=== PATIENT | female | born 1950 | race Caucasian/White ===

== ENCOUNTER → 2020-03-07 13:26 | Outpatient (CLI) | payer MEDICARE, SELFPAY ==
[2020-03-09 08:22] LABS: COVID19 Sendout Not Detected (Not Detect)
== END ==
PROVIDERS: Visit Provider Physician Assistant
DX: Z11.59 Encounter for screening for other viral diseases (principal)
CPT/HCPCS: 87635

== ENCOUNTER 2020-03-10 11:16 | Day surgery (SDC) | payer MEDICARE, SELFPAY ==
[2020-03-03 10:48] VITALS: BMI 28.2
[2020-03-10] VITALS (12 sets, daily range): BP systolic 110–147; BP diastolic 49–91; PULSE 72–91; RESP 15–16; TEMP 35.9–37.3; O2SAT 94–100; BMI 27.6
--- NOTE | 2020-03-10 | DI.RAD.S_ITS ---
PROCEDURE: XR HIP W PEL IF DONE RT 2V INDICATIONS: TOTAL HIP TECHNIQUE: AP pelvis with lateral view(s) of the right hip(s). COMPARISON: None. FINDINGS: Spot fluoroscopic intraoperative views demonstrating expected alignment of right hip arthroplasty. Hardware appears intact. Dictated by: Elia Bardales M.D. on 03/11/2020 at 8:38 Approved by: Elia Bardales M.D. on 03/11/2020 at 8:39
--- NOTE | 2020-03-10 06:00 | DI.RAD.S_ITS ---
PROCEDURE: XR HIP W PEL IF DONE RT 2V INDICATIONS: post-op TECHNIQUE: AP pelvis with lateral view(s) of the right hip(s). COMPARISON: [facility], , XR HIP W PEL IF DONE RT 2V, 03/10/2020, 16:57. FINDINGS: Expected postoperative alignment of right hip arthroplasty. Hardware appears intact. Dictated by: Elia Bardales M.D. on 03/11/2020 at 9:36 Approved by: Elia Bardales M.D. on 03/11/2020 at 9:49
[2020-03-10] MEDS: ACETAMINOPHEN 325 MG TABLET 975 MG PO (11:34)
[2020-03-10] MEDS: CELECOXIB 200 MG CAPSULE PO (11:34)
[2020-03-10] MEDS: PREGABALIN 75 MG CAPSULE PO (11:34)
[2020-03-10] MEDS: LACTATED RINGERS 1,000 ML 42 ML IV ×2 (12:22→15:02)
[2020-03-10] MEDS: VANCOMYCIN 1,000 MG/200 ML PIGGYBACK 200 MG IV (12:41)
--- NOTE | 2020-03-10 13:08 | P.OP_ITS ---
Operative Date/Time/Diagnoses Date of procedure: 03/10/20 Time of procedure: 13:51 Pre-op diagnosis: right hip /avn Post-op diagnosis: same Procedure & Clinicians Procedure: Right total hip arthroplasty anterior approach Same procedure as scheduled: Yes Indications: The patient has had progressively worsening right hip pain with radiographic changes consistent with arthritis. Non-operative management has failed and the patient has requested total hip replacement. The risks, benefits and alternatives to surgery were discussed with the patient prior to proceeding. Risks discussed included, but were not limited to, failure to relieve pain, leg length discrepancy, dislocation, stiffness, infection, nerve damage, deep venous thrombosis, pulmonary embolism, stroke, coma, heart attack, permanent paralysis and , as well as the potential need for eventual revision of the prosthetic. Surgeon: Malika Felipe Clarity Developer: Kathia Gómez Anesthesia Type: General and Spinal Operative Notes Findings: Severe right hip avascular necrosis, adequate stability, soft but adequate bone Closure Type: primary Specimen(s): none sent Prosthetic devices, grafts, tissues, transplants, or devices: Felipe and Nephew 52 mm R3 cup, size 4 standard offset anthology, +0 Oxinium by 36 head, one 20 mm screw Estimated Blood Loss (mL): 250 Blood products transfused: none Procedure in detail: The patient was brought to the operating room. Patient was carefully positioned in the supine position. Time-out was performed and antibiotics were given. Anesthesia was induced. She was positioned in the on the table in order to allow hyperextension of the hip. The right lower extremity was prepped and draped in a standard sterile fashion. An anterior right hip incision was made 1 fingerbreadth lateral to the anterior superior iliac spine and extended distally towards the greater trochanter. Dissection was carried out through skin and subcutaneous tissues. Superficial hemostasis was achieved. The fascia over the tensor fascia germán was defined and incised with a knife. Two Allis clamps were used to grasp the fascia. Tensor fascia germán was retracted laterally. A gelpi retractor was placed. Dissection was carried out down along the neck. The circumflex vessels were carefully identified and cauterized with the Aqua Mantis. There was adequate visualization of the femoral neck. There was significant adhesions in her hip both between the tensor and the underlying fascia as well as the hip abductors and severe scarring between the hip abductors and the capsule. The soft tissues were meticulously mobilized off of the capsule. There were fairly dense adhesions between the capsule and the hip abductors as well as the rectus. A Cobra was placed superior to the neck and the gluteus fibers were carefully stripped from that superior aspect of the capsule. A 2nd retractor was placed along the inferior aspect of the neck. The rectus insertion along the capsule was partially released. The rectus was fairly densely adhered to the anterior capsule and was meticulously released. A 3rd retractor that was then gently placed over the rim of the acetabulum under the rectus. Capsule was carefully incised and released from the intertrochanteric line circumferentially superior to the mid sagittal line and inferiorly to the mid sagittal line until the lesser trochanter was palpable. A tag stitch was placed both in the superior and inferior limb of the capsular insertion. Along the acetabulum capsule was also released up to the mid sagittal 12:00 position. A portion of the labrum was resected. The capsule had to be carefully released from the superior aspect of the acetabulum and it was also densely adherent to the posterior labrum. A saw was used to perform an osteotomy at the level of the i ntertrochanteric line and the junction of the superior femoral neck leaving approximately 1 finger breath of residual inferior neck above the lesser trochanter. A 2nd cut was made along the femoral neck at the base of the head and a napkin ring of neck was removed. Corkscrew was placed in the femoral head and the head was removed without difficulty. Retractors were then repositioned around the a cetabulum. Residual labrum was resected and additional osteophytes were removed. A reamer that was 4 mm below the templated size was placed by hand in the acetabulum and it was reamed to centralize the acetabulum. It was then reamed up to 2 under the templated size and fluoroscopy was brought in to confirm the position of the reaming and depth of reaming. I reamed 1 under the anticipated size. A trial cup was placed and noted that it was appropriately sized and fluoroscopy confirmed position and depth. The component was open and inserted without difficulty fluoroscopic imaging was used to confirm that the cup had been adequately seated and was well positioned. It was further stabilized with a single posterior screw. Neutral poly trial liner was placed. The cup was tested and noted to be stable. Attention was then directed to the femur. The femur was gently hyperextended additional capsular release was performed as needed in order to allow adequate visualization of the proximal femur with elevation of the femur. Patient was placed in a hyperextended slightly adducted position with maximum external rotation. Box osteotome was used to check for any residual neck as well as scler otic bone along the trochanter. [place] pepper was placed in the femur. Additional broaching was performed. Canal finder was used to determine the alignment of the canal and position. Size 1 broach was placed. The canal was then appropriately broached up to the templated size as long as there was adequate stability of the broach and serial advancement of the broach without excessive impingement. Sp ecific attention was directed at avoiding varus attempting to direct the distal aspect of the broach more anteriorly and avoiding excessive anteversion. Trial reduction showed acceptable range of motion, good stability, no posterior impingement, episcopalian of leg length and appropriate lateral shuck. I also hyperflexed the hip and checked that there was no impingement anteriorly and there was good stability with flexion, adduction and internal rotation. Marcaine and Exparel were injected. The stem was placed without difficulty. Repeat trial reduction and x-ray showed acceptable overall position, length, and no evidence of the femoral fracture. Final head was placed. Wound was meticulously irrigated with normal saline. The hip was reduced and additional Exparel and Marcaine were injected. The capsule was closed with interrupted nonabsorbable sutures. The fascia of the tensor was closed with interrupted and running Vicryl. No drain was placed. Any tensor fascia germán muscle that appeared to be contused or injured which was a minimal amount was carefully resected. Capsule around the tensor was injected with Exparel and Marcaine. The skin was closed with barbed stitches for the s ubcutaneous tissue and skin. We also used surgical glue. The wound was dressed sterilely. Brief Betadine soak was also used and was meticulously irrigated with normal saline. Patient was transferred to recovery room in satisfactory condition. Complications: none Post-operative Condition: stable Disposition: Acute Care Plan for aftercare: The patient will be maintained on a standard total hip replacement protocol with weight bearing as tolerated and anterior hip precautions. The patient will receive Aspirin and sequential compression devices for DVT prophylaxis. The patient will be discharged home when safe for the home environment.
--- NOTE | 2020-03-10 13:08 | PM.PREOP ---
Pre-operative Note COVID-19 COVID-19 status: Negative Interval Note History & Physical reviewed/Exam performed by Physician: Yes Changes to H&P: No
[2020-03-10] MEDS: CEFAZOLIN 2 GM/100 ML FROZ.PIGGY IV ×2 (13:45→21:36)
[2020-03-10] MEDS: TRANEXAMIC ACID 1,000 MG VIAL 2000 MG INJ (14:16)
--- NOTE | 2020-03-10 14:30 | SUR.OPER ---
Supine on padded [place] table with bilateral legs secured in padded positioning boots and suspended in positioning spars, operative leg in traction per surgeon. Head on one pillow. Arm on non-operative side secured on padded armboard <90 degrees abduction. Arm on operative side padded and resting across chest then secured with tape over sheet. Padded perineal post in place per surgeon.
[2020-03-10] MEDS: BUPIVACAINE 0.25% W/ EPI (PF) 10 ML VIAL 20 ML INJ (14:35)
[2020-03-10] MEDS: SODIUM CHLORIDE IRRIG SOLUTION 250 ML, POVIDONE-IODINE SPONGE STICKS 1 APPLIC IRR (14:38)
[2020-03-10] MEDS: BUPIVACAINE LIPOSOME 266 MG/20 ML VIAL INJ (14:38)
[2020-03-10] MEDS: LACTATED RINGERS 1,000 ML 125 ML IV (20:12)
[2020-03-10] MEDS: ASPIRIN EC 81 MG TABLET PO (21:36)
[2020-03-10] MEDS: DOCUSATE 100 MG CAPSULE PO (21:36)
[2020-03-10] MEDS: IBUPROFEN 400 MG TABLET PO (21:36)
[2020-03-10] MEDS: ACETAMINOPHEN 325 MG TABLET 650 MG PO (21:36)
[2020-03-11] MEDS: IBUPROFEN 400 MG TABLET PO ×4 (00:40→12:16)
[2020-03-11] MEDS: LACTATED RINGERS 1,000 ML 125 ML IV (04:43)
[2020-03-11 04:45] VITALS: BP 122/77; PULSE 69; RESP 16; TEMP 36.6; O2SAT 98
[2020-03-11 05:53] LABS: Hematocrit 28.2 % (36-46); Hemoglobin 9.4 g/dL (12.0-16.0)
[2020-03-11] MEDS: CEFAZOLIN 2 GM/100 ML FROZ.PIGGY IV (05:58)
--- NOTE | 2020-03-11 08:20 | PM.PNPO.1 ---
Subjective Subjective Date Patient Seen: 03/11/20 Time Patient Seen: 08:20 Interval history: POD #1 s/p right total hip arthroplasty anterior approach with Dr. Felipe. Patient is having no pain today. She has gotten up to the bedside commode. She has not worked with physical therapy yet. No complaints this morning. Exam Vital Signs (past 8 hours): - 03/11/20 04:45 Temperature 97.9 F Pulse Rate 69 Respiratory Rate 16 Blood Pressure 122/77 Pulse Oximetry 98 Oxygen Delivery Method Room Air Oxygen Flow Rate 0 Narrative Exam Narrative: Patient lying in bed no acute distress. She is alert orient x3. Calves are soft, compressible, nontender bilaterally. SCDs on and functioning. Dorsalis pedis pulses 2+. She is able to actively dorsiflex and plantar flex. Sensation intact light touch throughout bilateral lower extremities. Objective Labs Result Diagrams: 03/11/20 05:38 Labs: Laboratory Results - last 24 hr 03/11/20 05:38 Hgb 9.4 L Hct 28.2 L Assessment & Plan Post-op Postoperative Procedures: Procedures Operation Date: 03/10/20 13:15 Actual Procedures Side Surgeon p Total Hip Arthroplasty/Anterior Approach Right Malika Felipe MD patient will mobilize with physical therapy today. Anterior hip precautions. We will plan to send home a prescription for Brusly for pain control. She is to take ASA 81 mg b.i.d. for 6 weeks. If patient is mobilizing safely with adequate pain control she could go home today with her .
[2020-03-11 08:52] VITALS: BP 119/73; RESP 16; TEMP 37.2; O2SAT 96
[2020-03-11] MEDS: ACETAMINOPHEN 325 MG TABLET 650 MG PO (09:11)
[2020-03-11 09:12] VITALS: BP 129/80; PULSE 79
[2020-03-11] MEDS: DOCUSATE 100 MG CAPSULE PO (09:12)
[2020-03-11] MEDS: ASPIRIN EC 81 MG TABLET PO (09:12)
[2020-03-11] MEDS: lisinopriL 20 MG TABLET PO (09:12)
--- NOTE | 2020-03-11 11:50 | PT.IIE ---
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) Surgery Performed Operation Date: 03/10/20 13:15 Actual Procedures p Total Hip Arthroplasty/Anterior Approach(Right) - Malika Felipe MD Surgical History (Last Updated 03/03/20 @ 11:05 by Stacy León, RN) History of hysterectomy (Acute 1979) Medical History (Last Updated 03/03/20 @ 11:09 by Stacy León RN) Acid reflux (Acute) Anxiety (Acute) Cervical cancer (Acute 1979) Diverticulosis (Acute) Gout (Acute) HLD (hyperlipidemia) (Acute) HTN (hypertension) (Acute) Osteoarthritis (Acute) Ovarian cancer (Acute 1979) Pre-diabetes (Acute) Physical Therapy Inpatient Evaluation/Re-Eval M1 PT/OT-IP Prior Functional Status Start: 03/11/20 08:33 Freq: NEEDED Status: Active Protocol: Document 03/11/20 09:07 (Rec: 03/11/20 11:50 [email or web address]) Medical Review Prior Functional Status Medical History Reviewed Yes Diet/Fluid Consistency Regular Communication no deficits noted Mobility and Gait SPC for all home and community mobility. Can walk 50 yards at most without a break d/t pain. Pt prefers to use shopping cart for support during grocery shopping Activities of Daily Living and IADL's independent for all ADLs , IADLS with SPC Social History Household Members spouse Living Arrangements House Number of Floors (Floors) Two Floors Number of Stairs To Enter/Railing? 2 KEENAN with L rail, pt can stay on mainfloor Home Environment Tub/Shower Home Equipment Four Wheel Walker,Bedside Commode,Raised Toilet Seat w/ Armrests,Shower Seat with Backrest,Hand Held Shower,Long Handled Sponge,Long Handled Shoe Horn,Seismic Engineer,Grab Bars In Shower Employment Status Retired Additional Social History Comment pt lives with Tom and Tom is retired and able to assist as needed at home. Pt alos scheduled for outpatient PT starting from next week. M2 PT-IP Current Condition Start: 03/11/20 08:33 Freq: NEEDED Status: Active Protocol: Document 03/11/20 09:07 (Rec: 03/11/20 11:50 [email or web address]) Physical Therapy Current Condition Current Condition Evaluation Date 03/11/20 Treatment Diagnosis R JEANETTE (ant), difficulty in walking Onset Date 03/10/20 Precautions Anterior Hip Precautions No Hip Extension,No Hip External Rotation Weight Bearing Status Weight Bearing Status Weight Bear as Tolerated M3 PT-IP Subjective Start: 03/11/20 08:33 Freq: NEEDED Status: Active Protocol: Document 03/11/20 09:07 (Rec: 03/11/20 11:50 [email or web address]) Subjective Physical Therapy Visit Type Type Initial Evaluation Visit Start Time 09:07 Visit Stop Time 09:35 Total Visit Minutes 28 Notes at bedside. Number of PSYCHIATRIC TECHNICIAN Visits 0 Physical Therapy Visit Comments Patient Comments I am doing pretty well at this point Patient Goals To return home with Therapy Pain Assessment Pain When Pain Assessed During Mobility Pain Present Pain Present Pain Reported Location Right Hip Intensity 3 Scale Used Numeric (0 - 10) Description Aching Pain Management Techniques Timing of Activity with Medications M4 PT-IP Mobility and Gait Start: 03/11/20 08:33 Freq: NEEDED Status: Active Protocol: Document 03/11/20 09:07 (Rec: 03/11/20 11:50 [email or web address]) PT-Bed Mobility Assessment Supine to Sit Supine to Sit Standby Assistance Sit to Supine Sit to Supine Standby Assistance PT-Transfer Assessment Sit to and From Stand Sit to and from Stand Contact Guard Assistance,Use of Upper Extremities Equipment Transfer Assistive Device Gait Belt,Front Wheeled Walker Orthotic/Prosthetic Devices or Brace: No Transfers Transfer Destination Bed,Chair,Toilet Transfer Technique Stand Step Pivot Transfer Ability Level of Assist Contact Guard Assistance,Use of Upper Extremities Comments Mobility Comments Pt was in bed upon PT arrival, at bedside. Pt was able to recall all post op precautions. She then agreed to mobilize with PT. She completed supine to sit by slowly pivoting her R LE to EOB. She then sat at R EOB and stood up after with staggered stance and FWW CGA. Educated pt regarding post op WBAT status. Pt then practiced weight shift in standing and proceeded to amb. Pt requested to use toilet and she amb there with CGA with step to pattern. She was able to turn and descend with use of UE to control. Pt completed pericare after and stood up and went for a walk. She completed one lap of [facility] with FWW with step over gait CGA. She also completed stair climbing with L rail. 1st set with PT CORKY and 2nd set with Tom FRIED. She finished it with proper technique safely. She then returned to her room by using her 4WW. Pt amb well with it and steady and no LOB noted. She then sat on chair without stagger stance safely. Pt denies increase in discomfort. Call ligth placed within reach. Gait Assessment Gait Gait Assistance Required: Contact Guard Assist Distance (Feet) 220 Able to Maintain Weight Bearing Status Yes During Gait Assistive Devices Assistive Device Gait Belt,Front Wheeled Walker ,4 Wheeled Walker Orthotic/Prosthetic Devices or Brace: No Gait Deviations General Gait Pattern Antalgic,Decreased Stride Length,Decreased Feet Clearance,Flexed Trunk,Step-to Gait Factors Limiting Gait Function Factors Limiting Gait Function Decreased Activity Tolerance, Decreased Strength,Limited Range of Motion,Pain,Poor Balance Comments Gait Comments see mobility comments. Stair Climbing Assessment Evaluation Level of Assist On Stairs Minimal Assistance Devices Stair Climbing Assistive Devices Left Railing Technique/Endurance Stair Climbing Direction Ascend and Descend Stair Climbing Technique Step to Step Number of Steps Climbed 3 Query Text: Stair Climbing Set # Repetitions (reps) 2 Comments Stair Climbing Comments see mobility comments. PT-Balance Assessment Sitting Balance and Reactions Static Sitting Balance Ability Normal Dynamic Sitting Balance Ability Normal Standing Balance and Reactions Static Standing Balance Ability Normal Dynamic Standing Balance Ability Good Device Used FWW/4WW M5 PT-IP Objective Assessments Start: 03/11/20 08:33 Freq: NEEDED Status: Active Protocol: Document 03/11/20 09:07 (Rec: 03/11/20 11:50 [email or web address]) Orientation Orientation/Cognition Level of Alertness Alert Orientation Name,Age,Birthday,Month,Date, Year,Day of Week,Place, Situation Language Function Ability No Deficits Noted Safety Awareness Understands Safety Issues Memory Description No Deficits Noted Gross Range of Motion Upper Extremity ROM Assessment Within Functional Limits Lower Extremity ROM Assessment Right Impaired Strength Upper Extremity Strength Assessment Within Functional Limits Lower Extremity Strength Assessment Right Impaired Hip 4-/5 Knee 4+/5 Sensation Assessment Sensation Gross Sensation WNL M6 PT-IP Treatment Start: 03/11/20 08:33 Freq: NEEDED Status: Active Protocol: Document 03/11/20 09:07 (Rec: 03/11/20 11:50 [email or web address]) Physical Therapy Treatment Education Education Provided Precautions,Weight Bearing Status,Post-Op Packet,Safety M7 PT-IP Assessment and Plan Start: 03/11/20 08:33 Freq: NEEDED Status: Active Protocol: Document 03/11/20 09:07 (Rec: 03/11/20 11:50 [email or web address]) PT Summary Assessment and Plan Potential Rehabilitation Potential Excellent Status of Condition at Evaluation Stable Summary Impairments Pain,ROM,Strength,Balance,Bed Mobility,Transfers,Gait, Activity Tolerance Progress Towards Goals Safe For Discharge Assessment Summary This is a low complexity for this 69yo female s/o POD1 RTHA with anterior approach. Pt's basline = Use SPC for all mobility but independent for all ADLs and IADLs. CLOF = FWW /4WW for mobility with CGA. Pt completed 220 ft of walking and stair climbing with PAN CLEANER. Althougt pt only has 4WW, but she did demonstrate good ability to amb here in the hospital. She is safe to go home with assistance and outpatient PT to improve mobility and strength. Frequency of Treatment Frequency Of Treatment Discharge Recommendations To Nursing Amount of Assist Needed 1 Person Assist Discharge Recommendations PT Discharge Recommendations Home with Assistance, Outpatient PT Transportation Needs at Discharge Private Vehicle
[2020-03-11] MEDS: HYDROCODONE/ACET 5/325 TABLET 1 TAB PO (12:16)
--- NOTE | 2020-03-11 12:23 | PC.NURSE ---
Day shift note: Patient awake, alert, and pleasantly cooperative. Cleared by PT for discharge. CMS to RLE intact. Dressing to anterior hip, CDI. VSS and afebrile. Voiding and tolerating PO intake. Ambulated with PT in hallway and in room. Discharge instructions given to patient, discussed importance of F/U with Ortho as scheduled, s/sx of infections, mobility precautions, and new medication and side effects. at bedside providing supportive care, both verbalized understanding of discharge instructions. Home via private vehicle, accompanied by . Dr. Felipe updated.
--- NOTE | 2020-03-11 14:38 | CM.IDA ---
Initial DCP Assessment Note Pt is a 69 yo female, resident of [place] now POD#1 from Rt hip surgery w/ Dr Felipe PCP: Marybeth Garrett Payer: GISELA/ELIZABETH Reviewed chart, pt discussed in multidisciplinary rounds this morning. Therapy has cleared pt for return home w/family to assist and pt has planned for home, DC order from Ortho has already been initiated this morning. No needs expected from DC planning team although will remain available in case this changes today. ANNEL Mays
== END 2020-03-11 13:00 | disposition home or self-care (01) ==
LOC: OR 11:20 → AC 18:25
PROVIDERS: PCP Registered Nurse; Referring Provider Orthopaedic Surgery; Visit Provider Orthopaedic Surgery
PROC: (CPT 27130; principal; 2020-03-10 13:15)
DX: M16.11 Unilateral primary osteoarthritis, right hip (principal); M87.051 Idiopathic aseptic necrosis of right femur; R73.03 Prediabetes; I10 Essential (primary) hypertension; J44.9 Chronic obstructive pulmonary disease, unspecified
CPT/HCPCS: 27130; 36415; 73502; 76000; 85014; 85018; 94760; 97116; 97161; C1776; C9290; J0690; J1100; J2250; J2274; J2405; J2704; J3010

== ENCOUNTER 2022-10-29 15:47 | Emergency (ER) | payer MEDICARE, SELFPAY ==
[2020-03-10 20:15] VITALS: BMI 27.6
[2022-10-29] VITALS (15 sets, daily range): BP systolic 111–151; BP diastolic 55–70; PULSE 72–88; RESP 16–23; TEMP 36.3; O2SAT 97–100; BMI 27.4
[2022-10-29 16:45] LABS: Add Manual Diff / Slide Review NO; Basophils Absolute Auto 100 /uL (0-100); Basophils Percent Auto 0.5 % (0-2); Eosinophils Absolute Auto 100 /uL (0-450); Eosinophils Percent Auto 0.7 % (2-4); Hematocrit 27.7 % (36-46); Hemoglobin 9.4 g/dL (12.0-16.0); Lymphocytes Absolute Auto 2500 /uL (1100-4500); Lymphocytes Percent Auto 20.2 % (25-40); Mean Corpuscular HGB Conc 33.8 % (30-36); Mean Corpuscular Volume 91.8 fL (80-100); Monocytes Absolute Auto 700 /uL (0-900); Monocytes Percent Auto 5.6 % (3-14); Neutrophils Absolute Auto 9100 /uL (1500-7000); Platelet Count 374 X10^3/uL (150-400); Prothrombin Time 11.1 SECONDS (10.1-12.7); Red Blood Cell Count 3.02 X10^6/uL (4.0-5.2); Red Cell Distribution Width 13.4 % (11.6-14.8); White Blood Cell Count 12.5 X10^3/uL (4.5-11.0)
[2022-10-29 16:48] LABS: PTT Partial Thromboplastin Tim 34 SECONDS (26-36)
[2022-10-29 16:50] LABS: Alanine Aminotransferase 27 IU/L (<35); Albumin 4.7 g/dL (3.5-5.0); Alkaline Phosphatase 60 U/L (38-126); Aspartate Aminotransferase 25 IU/L (14-36); BUN Creatinine Ratio 36.4 (6-22); Bilirubin Total 0.3 mg/dL (0.2-1.3); Blood Urea Nitrogen 32 mg/dL (7-17); Calcium 9.6 mg/dL (8.4-10.2); Carbon Dioxide 24 mmol/L (22-32); Chloride 95 mmol/L (98-107); Estimated Glomerular Filt Rate > 60 mL/min (>60); Globulin 2.3 g/dL (1.7-4.1); Glucose 134 mg/dL (80-110); HEMOLYSIS < 15 (0-50); Potassium 4.5 mmol/L (3.4-5.1); Sodium 131 mmol/L (137-145)
[2022-10-29] MEDS: PANTOPRAZOLE 40 MG VIAL 80 MG IV (16:58)
[2022-10-29] MEDS: ONDANSETRON 4 MG/2 ML INJ IV (16:58)
--- NOTE | 2022-10-29 17:02 | ED.GIBLEED ---
HPI - GI Bleed <Akhil Sheikh DO - Last Filed: 10/31/22 07:04> General Chief complaint: GI Bleed Stated complaint: upper GI bleed, black tar stool, PCP ref Time Seen by Provider: 10/29/22 16:54 Source: patient Mode of arrival: Ambulatory Limitations: no limitations History of Present Illness HPI Narrative: 71-year-old female who was instructed to come to the emergency department for evaluation of a couple days of black tarry stool. She states that she was seen at a walk-in clinic. She states that they did check her stool and was positive for blood. She is also having some generalized abdominal discomfort but no specific pain. Generalized nausea but no vomiting. No fevers. She does take a baby aspirin but no other anticoagulation. She does drink alcohol. She also takes meloxicam. She has had a colonoscopy before but that was 15 years ago. No prior abdominal surgeries. Related Data Home Medications Medication Instructions Recorded Confirmed aspirin 81 mg tablet,delayed 81 mg PO DAILY 03/03/20 03/10/20 release lisinopril 20 mg tablet 20 mg PO DAILY 03/03/20 03/10/20 lovastatin 40 mg tablet 40 mg PO QPM 03/03/20 03/10/20 Previous Rx's Medication Instructions Recorded acetaminophen 325 mg tablet 500 mg PO TID #30 tabs 03/11/20 aspirin 81 mg tablet,delayed 81 mg PO BID #60 tabs 03/11/20 release docusate sodium 100 mg capsule 100 mg PO BID #20 caps 03/11/20 (DOK) hydrocodone 5 mg-acetaminophen 325 1 tab PO Q4-6H PRN Pain, Moderate 03/11/20 mg tablet (4-6) #50 tabs ibuprofen 400 mg tablet 400 mg PO Q4HR #60 tabs 03/11/20 pantoprazole 40 mg tablet,delayed 40 mg PO DAILY #30 tabs 10/29/22 release (Protonix) Allergies Allergy/AdvReac Type Severity Reaction Status Date / Time allopurinol Allergy Intermediate Rash Verified 03/10/20 11:33 Review of Systems <Akhil Sheikh DO - Last Filed: 10/31/22 07:04> Constitutional Constitutional: Reports system reviewed and no additional complaints, except as documented Cardiovascular Cardiovascular: Reports system reviewed and no additional complaints, except as documented Respiratory Respiratory: Reports system reviewed and no additional complaints, except as documented Gastrointestinal Gastrointestinal: Reports system reviewed and no additional complaints, except as documented Musculoskeletal Musculoskeletal: Reports system reviewed and no additional complaints, except as documented Integumentary/Breasts Skin/Breast: Reports system reviewed and no additional complaints, except as documented Hematologic/Lymphatic On Anticoagulants: No Patient History <DO Cristine Miguel Last Filed: 10/31/22 07:04> Medical History Acid reflux Anxiety Cervical cancer (1979) Diverticulosis Gout HLD (hyperlipidemia) HTN (hypertension) Osteoarthritis Ovarian cancer (1979) Pre-diabetes Surgical History (Updated 03/03/20 @ 11:05 by Stacy León RN) History of hysterectomy (1979) Social History household members: spouse Smoking Status: Former smoker alcohol intake: current Smoking Status: Former smoker alcohol intake frequency: 0-2 drinks per day Substance Use Type: marijuana Exam <DO Cristine Miguel Last Filed: 10/31/22 07:04> Initial Vital Signs Initial Vital Signs: Vital Signs Pulse Rate 83 10/29/22 15:56 Pulse Oximetry 100 10/29/22 15:56 Const General: cooperative, comfortable and No ill appearing HENMT Head: normal to inspection and normocephalic Resp Effort & Inspection: normal respiratory effort Auscultation: clear to auscultation bilaterally Cardio Rate: regular rate Rhythm: regular rhythm GI Inspection: normal to inspection and non-distended Palpation: soft and No tender Skin General: no rashes or lesions noted Neuro General: patient alert, patient awake, patient oriented x3 and moves all extremities Cognition: normal cognition Speech: speech normal Extrem General: capillary refill normal <Reji Yu DO - Last Filed: 10/30/22 04:54> Initial Vital Signs Initial Vital Signs: Vital Signs Pulse Rate 83 10/29/22 15:56 Pulse Oximetry 100 10/29/22 15:56 Course <DO Cristine Miguel Last Filed: 10/31/22 07:04> Orders Ordered: Discontinued Medications Ondansetron HCl (Ondansetron 4 Mg/2 Ml Inj) 4 mg IV NOW PRN PRN Reason: Nausea And Vomiting Last Admin: 10/29/22 16:58 Dose: 4 mg Documented By: ST Ondansetron HCl (Ondansetron 4 Mg Odt) 4 mg SL NOW PRN PRN Reason: Nausea And Vomiting Pantoprazole Sodium (Pantoprazole 40 Mg Vial) 80 mg IV NOW ONE Stop: 10/29/22 16:33 Last Admin: 10/29/22 16:58 Dose: 80 mg Documented By: ST Vital Signs Vital signs: Vital Signs - 8 hr 10/29/22 16:29 10/29/22 15:56 10/29/22 16:00 Temperature 97.4 F L Pulse Rate 88 83 82 Respiratory Rate 16 Blood Pressure 151/70 H Pulse Oximetry 97 100 100 Oxygen Delivery Method Room Air Room Air 10/29/22 16:31 10/29/22 17:00 10/29/22 17:10 Temperature Pulse Rate 79 78 Respiratory Rate Blood Pressure 125/58 L Pulse Oximetry 100 Oxygen Delivery Method 10/29/22 17:10 10/29/22 17:30 10/29/22 17:30 Temperature Pulse Rate 81 75 Respiratory Rate Blood Pressure 116/55 L Pulse Oximetry 100 100 Oxygen Delivery Method 10/29/22 17:54 10/29/22 17:54 10/29/22 18:00 Temperature Pulse Rate 74 Respiratory Rate Blood Pressure 114/57 L 111/55 L Pulse Oximetry 100 Oxygen Delivery Method 10/29/22 18:00 Temperature Pulse Rate 72 Respiratory Rate Blood Pressure Pulse Oximetry 100 Oxygen Delivery Method <Reji Yu DO - Last Filed: 10/30/22 04:54> Orders Ordered: Discontinued Medications Ondansetron HCl (Ondansetron 4 Mg/2 Ml Inj) 4 mg IV NOW PRN PRN Reason: Nausea And Vomiting Last Admin: 10/29/22 16:58 Dose: 4 mg Documented By: Ondansetron HCl (Ondansetron 4 Mg Odt) 4 mg SL NOW PRN PRN Reason: Nausea And Vomiting Pantoprazole Sodium (Pantoprazole 40 Mg Vial) 80 mg IV NOW ONE Stop: 10/29/22 16:33 Last Admin: 10/29/22 16:58 Dose: 80 mg Documented By: ST Vital Signs Vital signs: Vital Signs - 8 hr 10/29/22 16:29 10/29/22 15:56 10/29/22 16:00 Temperature 97.4 F L Pulse Rate 88 83 82 Respiratory Rate 16 Blood Pressure 151/70 H Pulse Oximetry 97 100 100 Oxygen Delivery Method Room Air Room Air 10/29/22 16:31 10/29/22 17:00 10/29/22 17:10 Temperature Pulse Rate 79 78 Respiratory Rate Blood Pressure 125/58 L Pulse Oximetry 100 Oxygen Delivery Method 10/29/22 17:10 10/29/22 17:30 10/29/22 17:30 Temperature Pulse Rate 81 75 Respiratory Rate Blood Pressure 116/55 L Pulse Oximetry 100 100 Oxygen Delivery Method 10/29/22 17:54 10/29/22 17:54 10/29/22 18:00 Temperature Pulse Rate 74 Respiratory Rate Blood Pressure 114/57 L 111/55 L Pulse Oximetry 100 Oxygen Delivery Method 10/29/22 18:00 Temperature Pulse Rate 72 Respiratory Rate Blood Pressure Pulse Oximetry 100 Oxygen Delivery Method MDM - GI Bleed <Akhil Sheikh DO - Last Filed: 10/31/22 07:04> Lab Data Attestation: I reviewed the patient's lab results. 10/29/22 18:15 10/29/22 16:00 Labs: Lab Results 10/29/22 10/29/22 10/29/22 Range/Units 16:00 16:00 16:00 WBC 12.5 H (4.5-11.0) X10^3/uL RBC 3.02 L (4.0-5.2) X10^6/uL Hgb 9.4 L (12.0-16.0) g/dL Hct 27.7 L (36-46) % MCV 91.8 (80-100) fL MCH 31.0 (26-34) PG MCHC 33.8 (30-36) % RDW 13.4 (11.6-14.8) % Plt Count 374 (150-400) X10^3/uL Neut % (Auto) 73.0 (50-75) % Lymph % (Auto) 20.2 L (25-40) % [place] % (Auto) 5.6 (3-14) % Eos % (Auto) 0.7 L (2-4) % Baso % (Auto) 0.5 (0-2) % Neut # (Auto) 9100 H (3158-3708) /uL Lymph # (Auto) 2500 (4928-4398) /uL [place] # (Auto) 700 (0-900) /uL Eos # (Auto) 100 (0-450) /uL Baso # (Auto) 100 (0-100) /uL PT 11.1 (10.1-12.7) SECONDS INR 1.0 (0.9-1.3) APTT 34 (26-36) SECONDS Sodium 131 L (137-145) mmol/L Potassium 4.5 (3.4-5.1) mmol/L Chloride 95 L (98-107) mmol/L Carbon Dioxide 24 (22-32) mmol/L BUN 32 H (7-17) mg/dL Creatinine 0.88 (0.52-1.04) mg/dL Estimated GFR > 60 (>60) mL/min BUN/Creatinine Ratio 36.4 H (6-22) Glucose 134 H (80-110) mg/dL Calcium 9.6 (8.4-10.2) mg/dL Total Bilirubin 0.3 (0.2-1.3) mg/dL AST 25 (14-36) IU/L ALT 27 (<35) IU/L Alkaline Phosphatase 60 (38-126) U/L Total Protein 7.0 (6.3-8.2) g/dL Albumin 4.7 (3.5-5.0) g/dL Globulin 2.3 (1.7-4.1) g/dL Albumin/Globulin Ratio 2.0 (1.0-2.8) Blood Type Antibody Screen 10/29/22 10/29/22 Range/Units 16:00 18:15 WBC (4.5-11.0) X10^3/uL RBC (4.0-5.2) X10^6/uL Hgb 8.9 L (12.0-16.0) g/dL Hct 25.9 L (36-46) % MCV (80-100) fL MCH (26-34) PG MCHC (30-36) % RDW (11.6-14.8) % Plt Count (150-400) X10^3/uL Neut % (Auto) (50-75) % Lymph % (Auto) (25-40) % [place] % (Auto) (3-14) % Eos % (Auto) (2-4) % Baso % (Auto) (0-2) % Neut # (Auto) (3385-9190) /uL Lymph # (Auto) (0585-2161) /uL [place] # (Auto) (0-900) /uL Eos # (Auto) (0-450) /uL Baso # (Auto) (0-100) /uL PT (10.1-12.7) SECONDS INR (0.9-1.3) APTT (26-36) SECONDS Sodium (137-145) mmol/L Potassium (3.4-5.1) mmol/L Chloride (98-107) mmol/L Carbon Dioxide (22-32) mmol/L BUN (7-17) mg/dL Creatinine (0.52-1.04) mg/dL Estimated GFR (>60) mL/min BUN/Creatinine Ratio (6-22) Glucose (80-110) mg/dL Calcium (8.4-10.2) mg/dL Total Bilirubin (0.2-1.3) mg/dL AST (14-36) IU/L ALT (<35) IU/L Alkaline Phosphatase (38-126) U/L Total Protein (6.3-8.2) g/dL Albumin (3.5-5.0) g/dL Globulin (1.7-4.1) g/dL Albumin/Globulin Ratio (1.0-2.8) Blood Type O Positive Antibody Screen Negative Urine Dip Bedside Urine Glucose Negative Bedside Urine Bilirubin - Negative Bedside Urine Ketone - Negative Urine Specific [place] 1.000 Bedside Urine Occult Blood - Negative Bedside Urine pH 6.0 Bedside Urine Protein - Negative Bedside Urine Urobilinogen - Negative Bedside Urine Nitrite - Negative Bedside Urine Leukocytes - Negative Esterase MDM Narrative Medical decision making narrative: Patient is a benign exam. Not tachycardic. Not hypotensive. Patient does drink alcohol and has been taking nonsteroidal anti-inflammatories and is also on aspirin. Patient is initially anemic however this is baseline per a prior hemoglobin hematocrit from 03/11/2020. Repeat H&H is pending. Care turned over to Dr. Yu to follow-up and disposition. <Reji Yu DO - Last Filed: 10/30/22 04:54> Lab Data Labs: Lab Results 10/29/22 10/29/22 10/29/22 Range/Units 16:00 16:00 16:00 WBC 12.5 H (4.5-11.0) X10^3/uL RBC 3.02 L (4.0-5.2) X10^6/uL Hgb 9.4 L (12.0-16.0) g/dL Hct 27.7 L (36-46) % MCV 91.8 (80-100) fL MCH 31.0 (26-34) PG MCHC 33.8 (30-36) % RDW 13.4 (11.6-14.8) % Plt Count 374 (150-400) X10^3/uL Neut % (Auto) 73.0 (50-75) % Lymph % (Auto) 20.2 L (25-40) % [place] % (Auto) 5.6 (3-14) % Eos % (Auto) 0.7 L (2-4) % Baso % (Auto) 0.5 (0-2) % Neut # (Auto) 9100 H (9192-3704) /uL Lymph # (Auto) 2500 (1122-3560) /uL [place] # (Auto) 700 (0-900) /uL Eos # (Auto) 100 (0-450) /uL Baso # (Auto) 100 (0-100) /uL PT 11.1 (10.1-12.7) SECONDS INR 1.0 (0.9-1.3) APTT 34 (26-36) SECONDS Sodium 131 L (137-145) mmol/L Potassium 4.5 (3.4-5.1) mmol/L Chloride 95 L (98-107) mmol/L Carbon Dioxide 24 (22-32) mmol/L BUN 32 H (7-17) mg/dL Creatinine 0.88 (0.52-1.04) mg/dL Estimated GFR > 60 (>60) mL/min BUN/Creatinine Ratio 36.4 H (6-22) Glucose 134 H (80-110) mg/dL Calcium 9.6 (8.4-10.2) mg/dL Total Bilirubin 0.3 (0.2-1.3) mg/dL AST 25 (14-36) IU/L ALT 27 (<35) IU/L Alkaline Phosphatase 60 (38-126) U/L Total Protein 7.0 (6.3-8.2) g/dL Albumin 4.7 (3.5-5.0) g/dL Globulin 2.3 (1.7-4.1) g/dL Albumin/Globulin Ratio 2.0 (1.0-2.8) Blood Type Antibody Screen 10/29/22 10/29/22 Range/Units 16:00 18:15 WBC (4.5-11.0) X10^3/uL RBC (4.0-5.2) X10^6/uL Hgb 8.9 L (12.0-16.0) g/dL Hct 25.9 L (36-46) % MCV (80-100) fL MCH (26-34) PG MCHC (30-36) % RDW (11.6-14.8) % Plt Count (150-400) X10^3/uL Neut % (Auto) (50-75) % Lymph % (Auto) (25-40) % [place] % (Auto) (3-14) % Eos % (Auto) (2-4) % Baso % (Auto) (0-2) % Neut # (Auto) (0615-2755) /uL Lymph # (Auto) (0747-4262) /uL [place] # (Auto) (0-900) /uL Eos # (Auto) (0-450) /uL Baso # (Auto) (0-100) /uL PT (10.1-12.7) SECONDS INR (0.9-1.3) APTT (26-36) SECONDS Sodium (137-145) mmol/L Potassium (3.4-5.1) mmol/L Chloride (98-107) mmol/L Carbon Dioxide (22-32) mmol/L BUN (7-17) mg/dL Creatinine (0.52-1.04) mg/dL Estimated GFR (>60) mL/min BUN/Creatinine Ratio (6-22) Glucose (80-110) mg/dL Calcium (8.4-10.2) mg/dL Total Bilirubin (0.2-1.3) mg/dL AST (14-36) IU/L ALT (<35) IU/L Alkaline Phosphatase (38-126) U/L Total Protein (6.3-8.2) g/dL Albumin (3.5-5.0) g/dL Globulin (1.7-4.1) g/dL Albumin/Globulin Ratio (1.0-2.8) Blood Type O Positive Antibody Screen Negative Urine Dip Bedside Urine Glucose Negative Bedside Urine Bilirubin - Negative Bedside Urine Ketone - Negative Urine Specific [place] 1.000 Bedside Urine Occult Blood - Negative Bedside Urine pH 6.0 Bedside Urine Protein - Negative Bedside Urine Urobilinogen - Negative Bedside Urine Nitrite - Negative Bedside Urine Leukocytes - Negative Esterase MDM Narrative Medical decision making narrative: Patient is a benign exam. Not tachycardic. Not hypotensive. Patient does drink alcohol and has been taking nonsteroidal anti-inflammatories and is also on aspirin. Patient is initially anemic however this is baseline per a prior hemoglobin hematocrit from 03/11/2020. Repeat H&H is pending. Care turned over to Dr. Yu to follow-up and disposition. [1800] (Gigi) Patient received in sign out from [Kori]. I have reviewed the clinical course and performed an independent history and physical exam. [71] year old patient presents with dark stools Multiple etiologies for patient's symptoms considered including, but not limited to: [GI bleed from PUD vs. NSAIDs, vs. other] Prior Charts reviewed in our EMR Primary Historian: patient Labs reviewed and interpreted by myself: patient slightly anemic, but at her baseline, minimal drop at recheck. Slightly increased BUN Patient's symptoms improved over duration of stay with above-stated therapies. No pain, hemodynamically stable, minimal change in H&H, not truly anticoagulated, patient is stable and appropriate for discharge Findings and discharge diagnosis discussed with patient/family followed by verbalization of understanding Return precautions discussed with patient/family whom verbalize understanding of diagnosis and plan Discharge Plan Departure Patient Disposition: Home Clinical Impression: Acute GI bleeding Instructions: Gastrointestinal Bleeding Activity Restrictions/Additional Instructions: *You have been diagnosed with [gastrointestinal bleeding. As we discussed your history and physical exam are reassuring as are vital signs and labs. Your blood counts are stable for you, and changed only slightly on repeat. ] *What to do: *PLease stop taking your aspirin and ibuprofen until follow up. Otherwise please continue to take your regular medications as directed. [x ] New medication prescriptions sent to your pharmacy: [ [facility]] [ ] New medication written as a paper prescription [ ] No new medications given *Please follow up with your primary care provider in 2-3 days, call for an appointment. Let them know you were seen in the Emergency Department and that we ask that you be seen in follow up. We will electronically transmit a record of today's note if your PCP is in our system * as mentioned we have included contact information for Dr. Clarke [facility] Typically your primary care provider will help get you set up for a colonoscopy and at [facility] this is traditionally done by the general surgeons. Please call the office and let them know you were seen in the ED and we would like you to be seen in follow up. *Return to Emergency Department if you should have any new, worsening or concerning symptoms, such as [fever greater than 101 F, shaking chills, worsening pain, persistent vomiting or other bothersome symptoms] Prescriptions: New pantoprazole [Protonix] 40 mg tablet,delayed release (DR/EC) 40 mg PO DAILY Qty: 30 0RF No Action lisinopril 20 mg Tablet 20 mg PO DAILY lovastatin 40 mg Tablet 40 mg PO QPM aspirin 81 mg Tablet,Delayed Release (Dr/Ec) 81 mg PO DAILY acetaminophen 325 mg Tablet 500 mg PO TID Qty: 30 0RF hydrocodone-acetaminophen 5-325 mg Tablet 1 tab PO Q4-6H PRN (Reason: Pain, Moderate (4-6)) Qty: 50 0RF Rx Instructions: 1-2 tabs po every 4-6 hours as needed for pain. exempt. post op pain. aspirin 81 mg Tablet,Delayed Release (Dr/Ec) 81 mg PO BID Qty: 60 0RF ibuprofen 400 mg Tablet 400 mg PO Q4HR Qty: 60 0RF docusate sodium [DOK] 100 mg Capsule 100 mg PO BID Qty: 20 0RF Referrals: Kleber Clarke MD [Physician] - Marybeth Garrett ARNP [Primary Care Provider] - Stand Alone Forms: Patient Portal/API
[2022-10-29 18:38] LABS: Hematocrit 25.9 % (36-46); Hemoglobin 8.9 g/dL (12.0-16.0)
== END 2022-10-29 20:20 | disposition home or self-care (01) ==
PROVIDERS: Emergency Medicine; Emergency Provider Emergency Medicine; PCP Registered Nurse
DX: K92.2 Gastrointestinal hemorrhage, unspecified (principal)
CPT/HCPCS: 36415; 80053; 81003; 85014; 85018; 85025; 85610; 85730; 86850; 86900; 86901; 93005; 96374; 96375; 99284; C9113; J2405

== ENCOUNTER 2022-11-27 12:49 | Day surgery (SDC) | payer MEDICARE, SELFPAY ==
[2020-03-10 20:15] VITALS: BMI 27.6
[2022-11-27 13:12] VITALS: BMI 28.7
[2022-11-27 13:32] VITALS: BP 140/82; PULSE 70; RESP 16; TEMP 36.7; O2SAT 98
[2022-11-27] MEDS: LACTATED RINGERS 1,000 ML 100 ML IV (13:32)
--- NOTE | 2022-11-27 13:51 | PM.PREOP ---
Pre-operative Note COVID-19 COVID-19 status: Not tested Interval Note History & Physical reviewed/Exam performed by Physician: Yes Changes to H&P: No ASA Class (for procedural sedation): II
[2022-11-27 14:53] VITALS: BP 114/60; PULSE 61; RESP 18; TEMP 36.3; O2SAT 97
--- NOTE | 2022-11-27 14:54 | P.OP.EGD&C_ITS ---
Operative Date/Time/Diagnoses Date of procedure: 11/27/22 Time of procedure: 14:54 Pre-op diagnosis: Melena and anemia Post-op diagnosis: same Procedure & Clinicians Study performed: EGD and colonoscopy Same procedure as scheduled: Yes Surgeon: Kleber Clarke Procedure Notes Procedure in detail: Surgeon: Kleber Clarke MD Anesthesia: Graham Carpenter CRNA Procedure in detail: A timeout was performed. A bite blocked was placed and monitors were attached to the patient. The patient was positioned in a left lateral decubitus position. Sedation was administered. Once the patient was sedated the endoscope was inserted through the bite block and passed through the esophagus and stomach and into the duodenum. No abnormalities were seen. We then withdrew the scope into the stomach. No abnormalities were seen. The endoscope was retroflexed and no hiatal hernia was seen. The endoscope was straightned and withdrawn into the esophagus. No abnormalities were seen. Findings: Normal esophagus, stomach and duodenum Next we repositioned the patient for a colonoscopy. A digital rectal exam was performed and was normal. The colonoscope was inserted and advanced to the cecum. The appendiceal orifice was identified and photographed. The scope was slowly withdrawn over greater than 6 minutes. There was pandiverticulosis greatest in the sigmoid colon. No source of melena was identified. No polyps were found. The scope was retroflexed in the rectum and mild internal hemorr hoids were noted. Findings: Pandiverticulosis and mild internal hemorrhoids EBL: 0 Scope withdrawal time: 12 minutes Sedation minutes: 36 months Post-procedure Disposition: PACU
[2022-11-27 14:58] VITALS: BP 108/63; PULSE 70; RESP 17; O2SAT 98
[2022-11-27 15:03] VITALS: BP 98/65; PULSE 69; RESP 14; O2SAT 97
[2022-11-27 15:06] VITALS: BP 98/65; PULSE 66; RESP 16; O2SAT 98
[2022-11-27 15:20] VITALS: BP 147/73; PULSE 63; RESP 16; TEMP 36.1; O2SAT 98
== END 2022-11-27 15:29 | disposition home or self-care (01) ==
PROVIDERS: PCP Registered Nurse; Referring Provider Surgery; Visit Provider Surgery
PROC: 0DJ08ZZ Inspection of Upper Intestinal Tract, Via Natural or Artificial Opening Endoscopic (ICD-10-PCS; CPT 43235; principal; 2022-11-27 14:30)
PROC: 0DJD8ZZ Inspection of Lower Intestinal Tract, Via Natural or Artificial Opening Endoscopic (ICD-10-PCS; CPT 45378; 2022-11-27 14:30)
DX: K92.1 Melena (principal); D64.9 Anemia, unspecified; K57.30 Diverticulosis of large intestine without perforation or abscess without bleeding; K64.8 Other hemorrhoids
CPT/HCPCS: 45378; 43235; J2704

== ENCOUNTER → 2023-01-31 13:04 | Outpatient (CLI) | payer MEDICARE, SELFPAY ==
[2020-03-10 20:15] VITALS: BMI 27.6
--- NOTE | 2023-01-31 | DI.CT.S_ITS ---
PROCEDURE: CT CHEST ABD PEL W CON INDICATIONS: Lower abdominal pain, unspecified TECHNIQUE: After the administration of oral and intravenous contrast, axial sections acquired from the supraclavicular neck to the pubic symphysis. Coronal and sagittal reformats were performed. For radiation dose reduction, the following was used: automated exposure control, adjustment of mA and/or kV according to patient size. COMPARISON: None. FINDINGS: Image quality: Excellent. CHEST: Lower Neck: No enlarged lymph nodes. Thyroid: Within normal limits. Axillae: No enlarged lymph nodes. Chest Wall: Unremarkable. Lungs and Airways: 5 mm pleural based pulmonary nodule, right middle lobe, image 176/3. Pleura: No pneumothorax or pleural effusions. Heart: Heart size is normal. No pericardial effusion. Thoracic Vessels: The aorta and pulmonary arteries demonstrate normal size. Mediastinum and Jacey: No enlarged lymph nodes. Esophagus: No wall thickening. No hiatal hernia. ABDOMEN: Liver: Unremarkable. Gallbladder: Unremarkable. Biliary ducts: Unremarkable. Pancreas: Unremarkable. Spleen: Unremarkable. Adrenal Glands: Unremarkable. Kidneys and Ureters: Unremarkable. Stomach and Bowel: Extensive sigmoid diverticulosis without evidence of diverticulitis. Peritoneum: No abnormal intraperitoneal fluid. No free air. Ventral Wall: No hernia. Abdominal Nodes: No retroperitoneal or mesenteric adenopathy by size criteria. Vessels: Aorta and inferior vena cava are normal in size. PELVIS: Pelvic Organs: Uterus is surgically absent.. Bladder: Unremarkable. Pelvic Nodes: No enlarged lymph nodes. Miscellaneous: No inguinal hernias are seen. Bones: Total right hip arthroplasty. No lytic or blastic bony lesions. No compression fractures. 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 IMPRESSION: 1. 5 mm pulmonary nodule, right middle lobe. Please see chart below for follow-up recommendations. 2. No acute pulmonary process. 3. Advanced sigmoid diverticulosis without evidence of diverticulitis. 4. No acute abdominal process. Fleischner Society criteria for SOLID lung nodule followup. Nodule size (mm)Low-risk patientHigh-risk patient<6 (single or multiple)No routine followup.Optional CT at 12 months. 6-8 (single or multiple)CT at 6-12 months, then optional CT at 18-24 mo.CT at 6-12 months, then CT at 18-24 months. >8 (single)CT at 3 months, PET-CT, or biopsy. Same as for low-risk pts. >8 (multiple)CT at 3-6 months, then optional CT at 18-24 mo.CT at 3-6 months, then CT at 18-24 months. Fleischner Society criteria for SUB-SOLID lung nodule followup. Solitary pure ground-glass nodules<6 mm (ground glass or part solid)No followup needed. 6 mm or larger (ground glass)CT at 6-12 months to confirm persistence, then CT every 2 years until 5 years.6 mm or larger (part solid)CT at 3-6 months to confirm persistence, then annual CT until 5 years if unchanged and solid component remains <6 mm. Multiple sub-solid nodules<6 mmCT at 3-6 months, then CT consider at 2 & 4 years for high risk patients. [address] at 3-6 months. Subsequent management based on most suspicious lesions. Recommendations do not apply to lung cancer screening, patients with immunosuppression, or patients with known primary cancer. Dictated by: Matheus Clark M.D. on 01/31/2023 at 17:41 Approved by: Matheus Clark M.D. on 01/31/2023 at 17:55
[2023-01-31 13:38] LABS: Estimated Glomerular Filt Rate > 60 mL/min (>60)
== END ==
PROVIDERS: Radiology Diagnostic Radiology; PCP Registered Nurse; Referring Provider Physician Assistant; Visit Provider Physician Assistant
DX: K57.30 Diverticulosis of large intestine without perforation or abscess without bleeding (principal); R91.1 Solitary pulmonary nodule; R10.30 Lower abdominal pain, unspecified
CPT/HCPCS: 36415; 71260; 74177; 82565; Q9967

== ENCOUNTER → 2023-07-08 11:10 | Outpatient (CLI) | payer MEDICARE, SELFPAY ==
[2020-03-10 20:15] VITALS: BMI 27.6
[2023-07-08 12:57] LABS: Add Manual Diff / Slide Review NO; Basophils Absolute Auto 0 /uL (0-100); Basophils Percent Auto 0.5 % (0-2); Eosinophils Absolute Auto 300 /uL (0-450); Eosinophils Percent Auto 3.9 % (2-4); Hematocrit 38.4 % (36-46); Hemoglobin 12.9 g/dL (12.0-16.0); Lymphocytes Absolute Auto 2300 /uL (1100-4500); Lymphocytes Percent Auto 27.1 % (25-40); Mean Corpuscular HGB Conc 33.6 % (30-36); Mean Corpuscular Hemoglobin 29.8 PG (26-34); Mean Corpuscular Volume 88.9 fL (80-100); Monocytes Absolute Auto 600 /uL (0-900); Monocytes Percent Auto 6.7 % (3-14); Neutrophils Absolute Auto 5200 /uL (1500-7000); Neutrophils Percent Auto 61.8 % (50-75); Platelet Count 385 X10^3/uL (150-400); Red Blood Cell Count 4.32 X10^6/uL (4.0-5.2); Red Cell Distribution Width 13.6 % (11.6-14.8); White Blood Cell Count 8.5 X10^3/uL (4.5-11.0)
[2023-07-08 13:00] LABS: Appearance Urine UA CLEAR; Bilirubin Urine UA NEGATIVE (NEGATIVE); Color Urine UA YELLOW; Glucose Urine UA NEGATIVE (Negative); Ketones Urine UA NEGATIVE (NEGATIVE); Leukocyte Esterase Urine UA 3+ (NEGATIVE); Nitrite Urine UA NEGATIVE (Negative); Occult Blood Urine UA NEGATIVE (Negative); Protein Urine UA NEGATIVE (Negative); Specific Gravity Urine UA <=1.005 (1.000-1.035); Urobilinogen Urine UA 0.2 E.U./dL (0.2)
[2023-07-08 13:03] LABS: pH Urine UA 5.5 (4.5-8.0)
[2023-07-08 13:07] LABS: Bacteria Urine None Seen; RBC Urine None Seen (0-5/HPF); Squamous Epithelial Cell Urine 1-5 /HPF (0-5/HPF); Urine Volume 10mL (spun); WBC Urine 10-30/HPF (0-5/HPF)
[2023-07-08 13:08] LABS: Culture Indicated Urine Specimen Cultured
[2023-07-08 13:32] LABS: HEMOLYSIS < 15 (0-50); Potassium 4.6 mmol/L (3.4-5.1)
[2023-07-08 13:33] LABS: BUN Creatinine Ratio 21.1 (6-22); Blood Urea Nitrogen 15 mg/dL (7-17); Calcium 10.1 mg/dL (8.4-10.2); Carbon Dioxide 27 mmol/L (22-32); Chloride 99 mmol/L (98-107); Estimated Glomerular Filt Rate > 60 mL/min (>60); Glucose 96 mg/dL (80-110); Sodium 134 mmol/L (137-145)
[2023-07-09 11:13] LABS: Hemoglobin A1C% w Est Avg Glu 5.8 % (4.0-6.0)
== END ==
PROVIDERS: PCP Registered Nurse; Referring Provider Orthopaedic Surgery; Visit Provider Orthopaedic Surgery
DX: Z01.818 Encounter for other preprocedural examination (principal); Z01.812 Encounter for preprocedural laboratory examination; R73.9 Hyperglycemia, unspecified; N39.0 Urinary tract infection, site not specified
CPT/HCPCS: 36415; 80048; 81001; 83036; 85025; 87086; 93005; 93010

== ENCOUNTER 2023-07-23 16:40 | Emergency (ER) | payer MEDICARE, SELFPAY ==
[2020-03-10 20:15] VITALS: BMI 27.6
[2023-07-23 16:52] VITALS: BP 165/81; PULSE 81; RESP 20; TEMP 36.7; O2SAT 94; BMI 26.4
[2023-07-23 16:55] VITALS: PULSE 74; O2SAT 98
--- NOTE | 2023-07-23 16:55 | ED_ITS ---
HPI - Abdominal Pain <Jc Ritchie PA-C - Last Filed: 07/23/23 19:02> General Chief Complaint: Abdominal Pain Stated Complaint: bloody stools, low abd pain Time Seen by Provider: 07/23/23 16:54 History of Present Illness HPI narrative: 72-year-old female with past medical history diverticulitis, osteoarthritis presents to the ED with 2 days of left lower quadrant pain, tarry black diarrhea. Patient states that she had a seen Loc's day meal with corn beef and cabbage and horse reddish the day before, and is concerned that the meal might have caused her symptoms. Patient has a history of diverticulitis with an abscess on the left side about 7 months ago. 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 Patient states that since yesterday, she feels like the fistula has opened up again and that she is also peeing out dark black fecal matter. Patient denies fever, chills, nausea, vomiting, chest pain, shortness of breath, lightheadedness, dizziness, syncope. Patient did complain of dysuria when she was having the urine mixed in with the stools. Patient has a left hip arthroplasty planned for August [address] Malika Felipe. Related Data Home Medications Medication Instructions Recorded Confirmed lisinopril 20 mg tablet 20 mg PO DAILY 03/03/20 11/27/22 meloxicam 7.5 mg tablet 7.5 mg PO BID 11/26/22 11/27/22 rosuvastatin 10 mg tablet 10 mg PO DAILY 11/26/22 11/27/22 biotin 2,500 mcg tablet 2,500 mcg PO DAILY 11/27/22 11/27/22 cholecalciferol (vitamin D3) 25 25 mcg PO DAILY 11/27/22 11/27/22 mcg (1,000 unit) capsule (Vitamin D3) ferrous sulfate 325 mg (65 mg 325 mg PO DAILY 11/27/22 11/27/22 iron) tablet (Iron (ferrous sulfate)) ferrous sulfate 325 mg (65 mg 325 mg PO DAILY 11/27/22 11/27/22 iron) tablet (iron) [id number] fumarate 18 1 tab-cap PO DAILY 11/27/22 11/27/22 mg-FA 600 mcg-vit K 40 mcg capsule (Multi For Her) Previous Rx's Medication Instructions Recorded pantoprazole 40 mg tablet,delayed 40 mg PO DAILY #30 tabs 10/29/22 release (Protonix) ciprofloxacin HCl 500 mg tablet 500 mg PO Q12H 5 days #10 tabs 07/23/23 metronidazole 500 mg tablet 500 mg PO Q8H 5 days #15 tabs 07/23/23 Allergies Allergy/AdvReac Type Severity Reaction Status Date / Time allopurinol Allergy Intermediate Rash Verified 11/27/22 13:10 Review of Systems <Jc Ritchie PA-C - Last Filed: 07/23/23 19:02> Constitutional Constitutional: Denies chills, Denies fatigue, Denies fever(s), Denies frequent falls, Denies lethargy and Denies weakness Eyes Eyes: Denies change in vision, Denies eye discharge, Denies irritation and Denies loss of vision ENT Ears, Nose, Mouth, and Throat: Denies change in voice, Denies dizziness, Denies neck pain, Denies sore throat and Denies throat swelling Cardiovascular Cardiovascular: Denies chest pain, Denies irregular heart rhythm, Denies lightheadedness, Denies palpitations, Denies dyspnea, Denies dyspnea on exertion and Denies orthopnea Respiratory Respiratory: Denies cough, Denies dyspnea, Denies dyspnea on exertion and Denies wheezing Gastrointestinal Gastrointestinal: Reports abdominal pain, Reports melena, Denies change in bowel habits, Reports diarrhea, Denies nausea and Denies vomiting Genitourinary Genitourinary: Reports dysuria Musculoskeletal Musculoskeletal: Denies neck pain and Denies numbness Integumentary/Breasts Skin/Breast: Denies pruritus, Denies erythema, Denies rash and Denies wounds Neurologic Neurologic: Denies behavioral changes, Denies confusion, Denies dizziness, Denies frequent falls, Denies loss of vision, Denies numbness and Denies weakness Psychiatric Psychiatric: Denies anxiety, Denies behavioral changes, Denies confusion, Denies depression, Denies homicidal ideation and Denies suicidal ideation Endocrine Endocrine: Denies fatigue, Denies flushing and Denies palpitations Hematologic/Lymphatic Hematologic/Lymphatic: Denies easy bruising Allergic/Immunologic Allergic/Immunologic: Denies urticaria, Denies throat swelling and Denies wheezing Patient History <Jc Ritchie PA-C - Last Filed: 07/23/23 19:02> Medical History Anxiety Ovarian cancer (1979) Cervical cancer (1979) Osteoarthritis Pre-diabetes Acid reflux Diverticulosis HLD (hyperlipidemia) HTN (hypertension) Gout Surgical History History of hysterectomy (1979) Social History household members: spouse Smoking Status: Former smoker alcohol intake: current Smoking Status: Former smoker alcohol intake frequency: 0-2 drinks per day Substance Use Type: marijuana Exam <Jc Ritchie PA-C - Last Filed: 07/23/23 19:02> Narrative Exam Narrative: Const General:?cooperative, healthy appearing and comfortable HENMT Head:?normal to inspection Ears:?hearing grossly normal bilaterally Nose:?external nose normal Face and sinus:?normal facial exam and sinuses nontender Mouth:?oral mucosae normal Throat:?posterior oropharynx normal Eyes General:?appearance normal, both eyes and all related structures Neck Neck:?normal visual inspection and no lymphadenopathy noted Resp Effort & Inspection:?normal respiratory effort Auscultation:?clear to auscultation bilaterally Cardio Rate:?regular rate Rhythm:?regular rhythm GI Abdomen is soft, nondistended. Abdomen is tender to palpation in the left lower quadrant. Neuro General:?patient alert, patient awake and patient oriented x3 Initial Vital Signs Initial Vital Signs: Vital Signs Temperature 98.0 F 07/23/23 16:52 Pulse Rate 81 07/23/23 16:52 Respiratory Rate 20 07/23/23 16:52 Blood Pressure 165/81 H 07/23/23 16:52 Pulse Oximetry 94 07/23/23 16:52 Oxygen Delivery Method Room Air 07/23/23 16:52 <Kateryna Hnuter DO - Last Filed: 07/26/23 08:59> Initial Vital Signs Initial Vital Signs: Vital Signs Temperature 98.0 F 07/23/23 16:52 Pulse Rate 81 07/23/23 16:52 Respiratory Rate 20 07/23/23 16:52 Blood Pressure 165/81 H 07/23/23 16:52 Pulse Oximetry 94 07/23/23 16:52 Oxygen Delivery Method Room Air 07/23/23 16:52 Course <Jc Ritchie PA-C - Last Filed: 07/23/23 19:02> Orders Ordered: ED Orders 07/23/23 17:05 CBC Auto Diff [Complete Blood Count AUTO DIFF] Stat CMP [Comprehensive Metabolic Panel] Stat Lactate (Lactic Acid) Stat Lipase Stat PT [Prothrombin Time INR] Stat PTT Partial Thromboplastin Desmond Stat 07/23/23 17:12 CT abdomen pelvis w con Stat 07/23/23 17:35 Urine Culture Stat Urine Microscopic Stat Vital Signs Vital signs: Vital Signs - 8 hr 07/23/23 16:52 07/23/23 16:55 07/23/23 17:00 Temperature 98.0 F Pulse Rate 81 74 81 Respiratory Rate 20 Blood Pressure 165/81 H Pulse Oximetry 94 98 99 Oxygen Delivery Method Room Air 07/23/23 17:00 07/23/23 17:30 07/23/23 17:30 Temperature Pulse Rate 74 Respiratory Rate Blood Pressure 130/75 131/61 Pulse Oximetry 98 Oxygen Delivery Method 07/23/23 18:00 07/23/23 18:00 07/23/23 18:30 Temperature Pulse Rate 74 Respiratory Rate Blood Pressure 98/59 L 106/66 Pulse Oximetry 99 Oxygen Delivery Method 07/23/23 18:30 Temperature Pulse Rate 81 Respiratory Rate Blood Pressure Pulse Oximetry 99 Oxygen Delivery Method <Kateryna Hunter DO - Last Filed: 07/26/23 08:59> Orders Ordered: ED Orders 07/23/23 17:05 CBC Auto Diff [Complete Blood Count AUTO DIFF] Stat CMP [Comprehensive Metabolic Panel] Stat Lactate (Lactic Acid) Stat Lipase Stat PT [Prothrombin Time INR] Stat PTT Partial Thromboplastin Desmond Stat 07/23/23 17:12 CT abdomen pelvis w con Stat 07/23/23 17:35 Urine Culture Stat Urine Microscopic Stat Vital Signs Vital signs: Vital Signs - 8 hr 07/23/23 16:52 07/23/23 16:55 07/23/23 17:00 Temperature 98.0 F Pulse Rate 81 74 81 Respiratory Rate 20 Blood Pressure 165/81 H Pulse Oximetry 94 98 99 Oxygen Delivery Method Room Air 07/23/23 17:00 07/23/23 17:30 07/23/23 17:30 Temperature Pulse Rate 74 Respiratory Rate Blood Pressure 130/75 131/61 Pulse Oximetry 98 Oxygen Delivery Method 07/23/23 18:00 07/23/23 18:00 07/23/23 18:30 Temperature Pulse Rate 74 Respiratory Rate Blood Pressure 98/59 L 106/66 Pulse Oximetry 99 Oxygen Delivery Method 07/23/23 18:30 Temperature Pulse Rate 81 Respiratory Rate Blood Pressure Pulse Oximetry 99 Oxygen Delivery Method MDM - Abdominal Pain <Hyma BRENTON Ritchie - Last Filed: 07/23/23 19:02> Lab Data 07/23/23 17:05 07/23/23 17:05 Labs: Lab Results 07/23/23 07/23/23 Range/Units 17:05 17:35 WBC 9.5 (4.5-11.0) X10^3/uL RBC 3.85 L (4.0-5.2) X10^6/uL Hgb 11.2 L (12.0-16.0) g/dL Hct 33.6 L (36-46) % MCV 87.4 (80-100) fL MCH 29.1 (26-34) PG MCHC 33.3 (30-36) % RDW 13.8 (11.6-14.8) % Plt Count 385 (150-400) X10^3/uL Neut % (Auto) 63.8 (50-75) % Lymph % (Auto) 27.0 (25-40) % Collier % (Auto) 6.2 (3-14) % Eos % (Auto) 1.9 L (2-4) % Baso % (Auto) 1.1 (0-2) % Neut # (Auto) 6100 (9866-7036) /uL Lymph # (Auto) 2600 (8213-2673) /uL Collier # (Auto) 600 (0-900) /uL Eos # (Auto) 200 (0-450) /uL Baso # (Auto) 100 (0-100) /uL PT 10.8 (9.4-12.5) SECONDS INR 0.9 (0.9-1.3) APTT 41 H (25.1-36.5) SECONDS Sodium 130 L (137-145) mmol/L Potassium 4.4 (3.4-5.1) mmol/L Chloride 100 (98-107) mmol/L Carbon Dioxide 22 (22-32) mmol/L BUN 21 H (7-17) mg/dL Creatinine 0.65 (0.52-1.04) mg/dL Estimated GFR > 60 (>60) mL/min BUN/Creatinine Ratio 32.3 H (6-22) Glucose 107 (80-110) mg/dL Lactate 1.0 (0.7-2.1) mmol/L Calcium 10.1 (8.4-10.2) mg/dL Total Bilirubin 0.6 (0.2-1.3) mg/dL AST 25 (14-36) IU/L ALT 23 (<35) IU/L Alkaline Phosphatase 79 (38-126) U/L Total Protein 7.8 (6.3-8.2) g/dL Albumin 4.9 (3.5-5.0) g/dL Globulin 2.9 (1.7-4.1) g/dL Albumin/Globulin Ratio 1.7 (1.0-2.8) Lipase 133 (23-300) U/L Urine RBC 0-1/hpf (0-5/HPF) Urine WBC 1-5/hpf (0-5/HPF) Ur Squamous Epith Cells 0-1 /hpf (0-5/HPF) Urine Bacteria Occasional (0-1) (None) Ur Culture Indicated? Specimen cultured Vol Urine Centrifuged 10ml (spun) Point of care testing: Urine Dip Bedside Urine Glucose Negative Bedside Urine Bilirubin - Negative Bedside Urine Ketone - Negative Urine Specific Sycamore 1.010 Bedside Urine Occult Blood ++ Bedside Urine pH 6.0 Bedside Urine Protein - Negative Bedside Urine Urobilinogen - Negative Bedside Urine Nitrite - Negative Bedside Urine Leukocytes ++ 125 Esterase MDM Narrative Medical decision making narrative: 72-year-old female with past medical history diverticulitis, osteoarthritis presents to the ED with 2 days of left lower quadrant pain, tarry black diarrhea. Concern for diverticulitis versus UTI versus gastroenteritis versus other intra-abdominal pathology versus other. Will obtain labs, lipase, lactate, CT abdomen pelvis, UA. Will reassess. Labs within normal limits. Lactate normal. Lipase within normal limits. UA without UTI. CT abdomen pelvis read as artifact from metallic hardware of right total hip arthroplasty versus acute diverticulitis. There is no evidence for perforation or abscess formation. There is some subtle stranding surrounding the distal gastric antrum, pylorus and proximal duodenum which may represent gastritis/peptic ulcer disease. No evidence for perforation or abscess formation. Appendix is normal. Given patient's complicated diverticulitis history, upcoming surgery will treat as a uncomplicated diverticulitis, will prescribe antibiotics. Discussed findings and plan with patient. Recommend low fiber diet for the next few days. Patient agrees to follow-up with PCP. ED return precautions discussed with patient. Patient verbalized understanding. Medical records reviewed: Yes <Kateryna Matt Hunter, DO - Last Filed: 07/26/23 08:59> Lab Data Labs: Lab Results 07/23/23 07/23/23 Range/Units 17:05 17:35 WBC 9.5 (4.5-11.0) X10^3/uL RBC 3.85 L (4.0-5.2) X10^6/uL Hgb 11.2 L (12.0-16.0) g/dL Hct 33.6 L (36-46) % MCV 87.4 (80-100) fL MCH 29.1 (26-34) PG MCHC 33.3 (30-36) % RDW 13.8 (11.6-14.8) % Plt Count 385 (150-400) X10^3/uL Neut % (Auto) 63.8 (50-75) % Lymph % (Auto) 27.0 (25-40) % Collier % (Auto) 6.2 (3-14) % Eos % (Auto) 1.9 L (2-4) % Baso % (Auto) 1.1 (0-2) % Neut # (Auto) 6100 (6900-3857) /uL Lymph # (Auto) 2600 (3434-8025) /uL Collier # (Auto) 600 (0-900) /uL Eos # (Auto) 200 (0-450) /uL Baso # (Auto) 100 (0-100) /uL PT 10.8 (9.4-12.5) SECONDS INR 0.9 (0.9-1.3) APTT 41 H (25.1-36.5) SECONDS Sodium 130 L (137-145) mmol/L Potassium 4.4 (3.4-5.1) mmol/L Chloride 100 (98-107) mmol/L Carbon Dioxide 22 (22-32) mmol/L BUN 21 H (7-17) mg/dL Creatinine 0.65 (0.52-1.04) mg/dL Estimated GFR > 60 (>60) mL/min BUN/Creatinine Ratio 32.3 H (6-22) Glucose 107 (80-110) mg/dL Lactate 1.0 (0.7-2.1) mmol/L Calcium 10.1 (8.4-10.2) mg/dL Total Bilirubin 0.6 (0.2-1.3) mg/dL AST 25 (14-36) IU/L ALT 23 (<35) IU/L Alkaline Phosphatase 79 (38-126) U/L Total Protein 7.8 (6.3-8.2) g/dL Albumin 4.9 (3.5-5.0) g/dL Globulin 2.9 (1.7-4.1) g/dL Albumin/Globulin Ratio 1.7 (1.0-2.8) Lipase 133 (23-300) U/L Urine RBC 0-1/hpf (0-5/HPF) Urine WBC 1-5/hpf (0-5/HPF) Ur Squamous Epith Cells 0-1 /hpf (0-5/HPF) Urine Bacteria Occasional (0-1) (None) Ur Culture Indicated? Specimen cultured Vol Urine Centrifuged 10ml (spun) Point of care testing: Urine Dip Bedside Urine Glucose Negative Bedside Urine Bilirubin - Negative Bedside Urine Ketone - Negative Urine Specific [place] 1.010 Bedside Urine Occult Blood ++ Bedside Urine pH 6.0 Bedside Urine Protein - Negative Bedside Urine Urobilinogen - Negative Bedside Urine Nitrite - Negative Bedside Urine Leukocytes ++ 125 Esterase Discharge Plan Departure Patient Disposition: Home Clinical Impression: Diverticulitis Instructions: Diverticulitis Activity Restrictions/Additional Instructions: You were evaluated in the ED today for left sided abdominal pain. Your labs and urine were normal. Your CT abdomen pelvis was read as an acute diverticulitis versus just an artifact from the hardware in your hip. Given your history of complicated diverticulitis, we will treat this as an uncomplicated diverticulitis and start you on antibiotics. You are being prescribed 2 antibiotics that you will take for the next 5 days. It is recommended that you eat foods with low fiber content for the next few days. Please follow-up with your PCP as soon as possible. Return to the ED via worsening symptoms, persistent vomiting, worsening diarrhea. Prescriptions: New metronidazole 500 mg tablet 500 mg PO Q8H 5 Days Qty: 15 0RF ciprofloxacin HCl 500 mg tablet 500 mg PO Q12H 5 Days Qty: 10 0RF No Action rosuvastatin 10 mg tablet 10 mg PO DAILY meloxicam 7.5 mg tablet 7.5 mg PO BID pantoprazole [Protonix] 40 mg tablet,delayed release (DR/EC) 40 mg PO DAILY Qty: 30 0RF ferrous sulfate [Iron (ferrous sulfate)] 325 mg (65 mg iron) Tablet 325 mg PO DAILY Multi For Her 18 mg iron-600 mcg-40 mcg Capsule 1 tab-cap PO DAILY ferrous sulfate [iron] 325 mg (65 mg iron) Tablet 325 mg PO DAILY biotin 2,500 mcg Tablet 2,500 mcg PO DAILY cholecalciferol (vitamin D3) [Vitamin D3] 25 mcg (1,000 unit) Capsule 25 mcg PO DAILY lisinopril 20 mg Tablet 20 mg PO DAILY Referrals: Marybeth Garrett ARNP [Primary Care Provider] - Stand Alone Forms: Patient Portal/API ED Sign-out <Kateryna Hunter DO - Last Filed: 07/26/23 08:59> Cosign ED Attending Cosignature Attestation: I was immediately available in the department for consultation.
[2023-07-23 17:00] VITALS: BP 130/75; PULSE 81; O2SAT 99
--- NOTE | 2023-07-23 17:12 | DI.CT.S_ITS ---
PROCEDURE: CT ABDOMEN PELVIS W CON INDICATIONS: llq pain TECHNIQUE: After the administration of intravenous contrast, axial sections acquired from the lung bases to the pubic symphysis. Coronal and sagittal reformats were performed. For radiation dose reduction, the following was used: automated exposure control, adjustment of mA and/or kV according to patient size. COMPARISON: [facility], CT, CT ABDOMEN PELVIS WITH CONTRAST, 03/26/2023, 14:10. FINDINGS: Image quality: Diagnostic. Lower Chest: No significant findings. ABDOMEN: Liver: No solid mass. Gallbladder: No radiopaque gallstones or wall thickening. Biliary ducts: No biliary dilation. Pancreas: No ductal dilation. Spleen: Size is within normal limits. Adrenal Glands: No adrenal nodules. Kidneys and Ureters: No hydronephrosis. No solid mass. No complex renal cystic lesion which requires follow up. Stomach and Bowel: Scattered colonic diverticulosis. There is subtle peridiverticular stranding in the mid to distal sigmoid colon. No evidence for bowel obstruction. There is also suggestion of mild inflammation of the distal gastric antrum, pylorus and proximal duodenum. No evidence for free air or organized fluid collection. Normal appendix. Peritoneum: No abnormal intraperitoneal fluid. No free air. Ventral Wall: No significant ventral hernia. Abdominal Nodes: No retroperitoneal or mesenteric adenopathy by size criteria. Vessels: Scattered atherosclerotic calcifications of the abdominal aorta and iliac vessels without aneurysmal dilatation. The inferior vena cava appears patent. PELVIS: Pelvic Organs: Unremarkable. Bladder: No bladder wall thickening, accounting for underdistention. Pelvic Nodes: No enlarged lymph nodes. Miscellaneous: No inguinal hernias are seen. Bones: No aggressive osseous abnormality. Status post right total hip arthroplasty. Severe degenerative changes of the left hip. No acute compression fractures of the lumbar spine. IMPRESSION: 1. Colonic diverticulosis with subtle stranding noted near the mid to distal sigmoid colon which may be secondary to artifact from streak artifact from metallic hardware of right total hip arthroplasty versus acute diverticulitis. No evidence for perforation or abscess formation. 2. Subtle stranding surrounding the distal gastric antrum, pylorus and proximal duodenum which may represent gastritis/peptic ulcer disease. No evidence for perforation or abscess formation. Recommend clinical correlation. 3. Normal appendix. Other chronic findings as above. Dictated by: Justice Iraheta M.D. on 07/23/2023 at 17:53 Approved by: Justice Iraheta M.D. on 07/23/2023 at 18:02
[2023-07-23 17:17] LABS: Add Manual Diff / Slide Review NO; Basophils Absolute Auto 100 /uL (0-100); Basophils Percent Auto 1.1 % (0-2); Eosinophils Absolute Auto 200 /uL (0-450); Eosinophils Percent Auto 1.9 % (2-4); Hematocrit 33.6 % (36-46); Hemoglobin 11.2 g/dL (12.0-16.0); Lymphocytes Absolute Auto 2600 /uL (1100-4500); Mean Corpuscular HGB Conc 33.3 % (30-36); Mean Corpuscular Hemoglobin 29.1 PG (26-34); Mean Corpuscular Volume 87.4 fL (80-100); Monocytes Absolute Auto 600 /uL (0-900); Monocytes Percent Auto 6.2 % (3-14); Neutrophils Absolute Auto 6100 /uL (1500-7000); Neutrophils Percent Auto 63.8 % (50-75); Platelet Count 385 X10^3/uL (150-400); Red Blood Cell Count 3.85 X10^6/uL (4.0-5.2); Red Cell Distribution Width 13.8 % (11.6-14.8); White Blood Cell Count 9.5 X10^3/uL (4.5-11.0)
[2023-07-23 17:25] LABS: INR 0.9 (0.9-1.3); Prothrombin Time 10.8 SECONDS (9.4-12.5)
[2023-07-23 17:27] LABS: PTT Partial Thromboplastin Tim 41 SECONDS (25.1-36.5)
[2023-07-23 17:30] VITALS: BP 131/61; PULSE 74; O2SAT 98
[2023-07-23 17:30] LABS: Alanine Aminotransferase 23 IU/L (<35); Albumin 4.9 g/dL (3.5-5.0); Albumin Globulin Ratio 1.7 (1.0-2.8); Alkaline Phosphatase 79 U/L (38-126); Aspartate Aminotransferase 25 IU/L (14-36); BUN Creatinine Ratio 32.3 (6-22); Bilirubin Total 0.6 mg/dL (0.2-1.3); Blood Urea Nitrogen 21 mg/dL (7-17); Calcium 10.1 mg/dL (8.4-10.2); Carbon Dioxide 22 mmol/L (22-32); Chloride 100 mmol/L (98-107); Estimated Glomerular Filt Rate > 60 mL/min (>60); Globulin 2.9 g/dL (1.7-4.1); Glucose 107 mg/dL (80-110); HEMOLYSIS < 15 (0-50); Lipase 133 U/L (23-300); Potassium 4.4 mmol/L (3.4-5.1); Sodium 130 mmol/L (137-145); Total Protein 7.8 g/dL (6.3-8.2)
[2023-07-23 17:46] LABS: Urine Volume 10mL (spun)
[2023-07-23 17:55] LABS: Bacteria Urine Occasional (0-1); Culture Indicated Urine Specimen Cultured; RBC Urine 0-1/HPF (0-5/HPF); Squamous Epithelial Cell Urine 0-1 /HPF (0-5/HPF); WBC Urine 1-5/HPF (0-5/HPF)
[2023-07-23 18:00] VITALS: BP 98/59; PULSE 74; O2SAT 99
[2023-07-23 18:30] VITALS: BP 106/66; PULSE 81; O2SAT 99
== END 2023-07-23 18:40 | disposition home or self-care (01) ==
PROVIDERS: Emergency Provider Student in an Organized Health Care Education/Training Program; PCP Registered Nurse
DX: K57.92 Diverticulitis of intestine, part unspecified, without perforation or abscess without bleeding (principal); Z79.899 Other long term (current) drug therapy
CPT/HCPCS: 36415; 74177; 80053; 81003; 81015; 83605; 83690; 85025; 85610; 85730; 87086; 99283; 99284; Q9967

== ENCOUNTER 2023-11-19 12:06 | Day surgery (SDC) | payer MEDICARE, SELFPAY ==
[2020-03-10 20:15] VITALS: BMI 27.6
[2023-11-12 08:54] VITALS: BMI 25.8
[2023-11-19] VITALS (10 sets, daily range): BP systolic 113–138; BP diastolic 57–76; PULSE 70–90; RESP 14–21; TEMP 35.9–36.3; O2SAT 97–100; BMI 26.6
--- NOTE | 2023-11-19 | DI.RAD.S_ITS ---
PROCEDURE: [id number] W PEL IF PERFORMED INDICATIONS: TOTAL LEFT HIP TECHNIQUE: 5 intraoperative fluoroscopic images of left hip and pelvis. COMPARISON: [facility], [place], XR HIP W PEL IF DONE RT 2V, 03/10/2020, 17:53. FINDINGS: Intraoperative fluoroscopic images shows left total hip arthroplasty in progress with anatomic left hip alignment. IMPRESSION: Fluoro guidance was provided intraoperatively for left total hip arthroplasty. Dictated by: Jim Mendez M.D. on 11/19/2023 at 16:35 Approved by: Jim Mendez M.D. on 11/19/2023 at 16:36
--- NOTE | 2023-11-19 06:00 | DI.RAD.S_ITS ---
PROCEDURE: XR HIP W PEL IF DONE LT 2V INDICATIONS: JEANETTE TECHNIQUE: AP pelvis and lateral view of the hip acquired. COMPARISON: [facility], [place], [id number] W PEL IF PERFORMED, 11/19/2023, 15:26. FINDINGS: Bones: Patient is status post left hip arthroplasty, with hardware components in expected positions. The hip joint appears congruent. No unexpected periprosthetic fractures. The visualized bony structures appear intact. Soft tissues: Overlying postoperative changes are noted. No suspicious soft tissue densities. IMPRESSION: Expected post-operative appearance of a hip arthroplasty. Dictated by: Bree Kapadia M.D. on 11/19/2023 at 23:08 Approved by: Bree Kapadia M.D. on 11/19/2023 at 23:08
[2023-11-19] MEDS: VANCOMYCIN 1,000 MG/200 ML PIGGYBACK 200 MG IV (12:47)
[2023-11-19] MEDS: ACETAMINOPHEN 325 MG TABLET 975 MG PO (12:47)
--- NOTE | 2023-11-19 13:35 | PM.PREOP ---
Pre-operative Note Interval Note History & Physical reviewed/Exam performed by Physician: Yes Changes to H&P: No
--- NOTE | 2023-11-19 13:37 | P.OP_ITS ---
Operative Date/Time/Diagnoses Date of procedure: 11/19/23 Time of procedure: 13:50 Pre-op diagnosis: Left hip OA, left hip AVN Post-op diagnosis: same Procedure & Clinicians Procedure: Left total hip arthroplasty anterior approach Same procedure as scheduled: Yes Indications: The patient has had progressively worsening left hip pain with radiographic changes consistent with arthritis. Non-operative management has failed and the patient has requested total hip replacement. The risks, benefits and alternatives to surgery were discussed with the patient prior to proceeding. Risks discussed included, but were not limited to, failure to relieve pain, leg length discrepancy, dislocation, stiffness, infection, nerve damage, deep venous thrombosis, pulmonary embolism, stroke, coma, heart attack, permanent paralysis and , as well as the potential need for eventual revision of the prosthetic. Surgeon: Malika Felipe Electric Stop Installer: Wil Velásquez Anesthesia Type: General and Spinal Operative Notes Findings: Severe left hip OA, adequate stability, soft bone Closure Type: primary Specimen(s): none sent Prosthetic devices, grafts, tissues, transplants, or devices: Felipe and Nephew R3 size 52 cup, neutral poly liner, size 4 standard offset anthology, 36 x +4 femoral head, two 6.5 mm screws Estimated Blood Loss (mL): 250 Procedure in detail: The patient was brought to the operating room. Patient was carefully positioned in the supine position. Time-out was performed and antibiotics were given. Anesthesia was induced. She was positioned in the on the table in order to allow hyperextension of the hip. The left lower extremity was prepped and draped in a standard sterile fashion. An anterior left hip incision was made 1 fingerbreadth lateral to the anterior superior iliac spine and extended distally towards the greater trochanter. Dissection was carried out through skin and subcutaneous tissues. Superficial hemostasis was achieved. The fascia over the tensor fascia germán was defined and incised with a knife. Two Allis clamps were used to grasp the fascia. Tensor fascia germán was retracted laterally. A gelpi retractor was placed. Dissection was carried out down along the neck. The circumflex vessels were carefully identified and cauterized with the Aqua Mantis. A PA was used during the procedure and was essential for intraoperative retraction and safe implantation of the components. There was good visualization of the femoral neck. A Cobra was placed superior to the neck and the gluteus fibers were carefully stripped from that superior aspect of the capsule. A 2nd retractor was placed along the inferior aspect of the neck. The rectus insertion along the capsule was partially released. A 3rd retractor that was then gently placed over the rim of the acetabulum under the rectus. Capsule was carefully incised and released from the intertrochanteric line circumferentially superior to the mid sagittal line and inferiorly to the mid sagittal line until the lesser trochanter was palpable. A tag stitch was placed both in the superior and inferior limb of the capsular insertion. Along the acetabulum capsule was also released up to the mid sagittal 12:00 position. A portion of the labrum was resected. A saw was used to perform an osteotomy at the level of the intertrochanteric line and the junction of the superior femoral neck leaving approximately 1 finger breath of residual inferior neck above the lesser trochanter. A 2nd cut was made along the femoral neck at the base of the head and a napkin ring of neck was removed. Corkscrew was placed in the femoral head and the head was removed without difficulty. Retractors were then repositioned around the acetabulum. Residual labrum was resected and additional osteophytes were removed. A reamer that was 4 mm below the templated size was placed by hand in the acetabulum and it was reamed to centralize the acetabulum. It was then reamed up to 2 under the templated size and fluoroscopy was brought in to confirm the position of the reaming and depth of reaming. I reamed 1 under the anticipated size. A trial cup was placed and noted that it was appropriately sized and fluoroscopy confirmed position and depth. The component was open and inserted without difficulty fluoroscopic imaging was used to confirm that the cup had been adequately seated and was well positioned. It was further stabilized with 2 screws. Neutral poly liner was placed. The cup was tested and noted to be stable. Attention was then directed to the femur. The femur was gently hyperextended additional capsular release was performed as needed in order to allow adequate visualization of the proximal femur with elevation of the femur. Patient was placed in a hyperextended slightly adducted position with maximum external rotation. Box osteotome was used to check for any residual neck as well as sclerotic bone along the trochanter. Starbuck pepper was placed in the femur. Additional broaching was performed. Canal finder was used to determine the al ignment of the canal and position. Size 1 broach was placed. The canal was then appropriately broached up to the templated size as long as there was adequate stability of the broach and serial advancement of the broach without excessive impingement. Specific attention was directed at avoiding varus attempting to direct the distal aspect of the broach more anteriorly and avoiding excessive anteversion. Trial reduction showed acceptable range of motion, good stability, no posterior impingement, bahai of leg length and appropriate lateral shuck. I also hyperflexed the hip and checked that there was no impingement anteriorly and there was good stability with flexion, adduction and internal rotation. Marcaine and Exparel were injected. The stem was placed without difficulty. Repeat trial reduction and x-ray showed acceptable overall position, length, and no evidence of the femoral fracture. Final head was placed. Wound was meticulously irrigated with normal saline. The hip was reduced and additional Exparel and Marcaine were injected. The capsule was closed with interrupted nonabsorbable sutures. The fascia of the tensor was closed with interrupted and running Vicryl. No drain was placed. Any tensor fascia germán muscle that appeared to be contused or injured which was a minimal amount was carefully resected. Capsule around the tensor was injected with Exparel and Marcaine. The skin was closed with barbed stitches for the subcutaneous tissue and skin. We also used surgical glue. The wound was dressed sterilely. Brief Betadine soak was also used and was meticulously irrigated with normal saline. Patient was transferred to recovery room in satisfactory condition. Complications: none Post-operative Condition: stable Disposition: Acute Care Plan for aftercare: The patient will be maintained on a standard total hip replacement protocol with weight bearing as tolerated and anterior hip precautions. The patient will receive Aspirin and sequential compression devices for DVT prophylaxis. The patient will be discharged home when safe for the home environment.
[2023-11-19] MEDS: CEFAZOLIN 2 GM/100 ML PREMIX 100 ML IV ×2 (14:05→21:36)
[2023-11-19] MEDS: TRANEXAMIC ACID 1,000 MG VIAL 1000 MG INJ ×2 (14:09→16:22)
--- NOTE | 2023-11-19 14:31 | SUR.OPER ---
Patient supine on padded Thaxton table, one arm on padded arm board at <90, other arm padded and secured with tape across patient's chest, both legs secured in padded traction boots and positioned per surgeon, padded post at patient's groin, pressure points checked and padded.
[2023-11-19] MEDS: BUPIVACAINE 0.25% (PF) 60 ML, EPINEPHrine 0.3 MG INJ (14:37)
[2023-11-19] MEDS: LACTATED RINGERS 1,000 ML 42 ML IV ×2 (16:02→16:57)
[2023-11-19] MEDS: BUPIVACAINE LIPOSOME 266 MG/20 ML VIAL INJ (16:30)
[2023-11-19] MEDS: LACTATED RINGERS 1,000 ML 100 ML IV ×2 (17:47→21:42)
--- NOTE | 2023-11-19 19:51 | PC.NURSE ---
1750 patient received post op from PACU. Oriented to room and call light. VSS. Awake and alert, talkative and laughing. Denies pain. Aquacel dressing to left hip intact without drainage or bleeding. Continue to monitor.
[2023-11-19] MEDS: ACETAMINOPHEN 325 MG TABLET 650 MG PO (20:38)
[2023-11-19] MEDS: ASPIRIN EC 81 MG TABLET PO (20:38)
[2023-11-19] MEDS: DOCUSATE 100 MG CAPSULE PO (20:39)
[2023-11-19] MEDS: MELOXICAM 7.5 MG TABLET PO (20:39)
[2023-11-20] MEDS: OXYCODONE IR 5 MG TABLET PO ×2 (00:15→08:42)
[2023-11-20] MEDS: CEFAZOLIN 2 GM/100 ML PREMIX 100 ML IV (05:24)
[2023-11-20 07:38] LABS: Hematocrit 30.3 % (36-46); Hemoglobin 10.2 g/dL (12.0-16.0)
[2023-11-20 08:00] VITALS: BP 154/66; PULSE 79; RESP 16; TEMP 36.4; O2SAT 99
--- NOTE | 2023-11-20 08:29 | P.DS_ITS ---
History of Present Illness History of Present Illness Date Patient Seen: 11/20/23 Time Patient Seen: 08:30 Chief complaint: Left Total Hip Arthroplasty/Anterior Approach Narrative: Operative Date/Time/Diagnoses Date of procedure: 11/19/23 Time of procedure: 13:50 Pre-op diagnosis: Left hip OA, left hip AVN Post-op diagnosis: same Procedure & Clinicians Procedure: Left total hip arthroplasty anterior approach Same procedure as scheduled: Yes Indications: The patient has had progressively worsening left hip pain with radiographic changes consistent with arthritis. Non-operative management has failed and the patient has requested total hip replacement. The risks, benefits and alternatives to surgery were discussed with the patient prior to proceeding. Risks discussed included, but were not limited to, failure to relieve pain, leg length discrepancy, dislocation, stiffness, infection, nerve damage, deep venous thrombosis, pulmonary embolism, stroke, coma, heart attack, permanent paralysis and , as well as the potential need for eventual revision of the prosthetic. Surgeon: Malika Felipe Avionics Technician: Wil Velásquez Anesthesia Type: General and Spinal Operative Notes Findings: Severe left hip OA, adequate stability, soft bone Closure Type: primary Specimen(s): none sent Prosthetic devices, grafts, tissues, transplants, or devices: [employer]hew R3 size 52 cup, neutral poly liner, size 4 standard offset anthology, 36 x +4 femoral head, two 6.5 mm screws Estimated Blood Loss (mL): 250 Discharge Providers Provider Date of admission: 11/19/23 Discharge Date: 11/20/23 Primary care physician: AMANDA Bauer Consults: 11/19/23 06:00 Consult to Anesthesiology Routine Comment: Consulting Provider: Anesthesiologist Reason for consultation: Regional block for post operative pain control 11/19/23 17:37 Consult to Discharge Planning Routine Comment: Consult to Occupational Therapy Evaluate & Treat Comment: Physician Instructions: Evaluate and treat Consult to Physical Therapy Evaluate & Treat Comment: Physician Instructions: post op JEANETTE protocol Discharge provider: Yony Gastelum PA-C Summary Hospital Course Discharge Diagnosis: Status post left total hip arthroplasty anterior approach Hospital Course: Multimodal pain control Physical therapy. Status at Discharge Cognitive/behavioral status at discharge: oriented Functional status at discharge: uses cane/walker Overall status at discharge: patient is back to baseline Time Spent with Patient Time spent: Less than 30 minutes Exam Vital Signs (past 8 hours): Oxygen Delivery Method Room Air Oxygen Flow Rate 0 Narrative Exam Narrative: Dressing is clean and dry and well-maintained. 5/5 strength in hip flexors, quadriceps, hamstrings, DF, PF, EHL bilaterally. Sensation to light touch intact throughout BLE. Calves soft, compressible, nontender. Objective Labs 11/20/23 07:11 Labs: Laboratory Results - last 24 hr 11/20/23 07:11 Hgb 10.2 L Hct 30.3 L PFSH Medical History (Updated 08/07/23 @ 00:01 by ) Fistula (~2022) Anxiety Cervical cancer (1979) Osteoarthritis Pre-diabetes Acid reflux Diverticulosis HLD (hyperlipidemia) HTN (hypertension) Gout Surgical History (Updated 07/29/23 @ 12:49 by Stacy León RN) History of total right hip replacement (03/10/20) Hx of colonoscopy (11/27/22) History of hysterectomy (1979) Social History household members: spouse Smoking Status: Former smoker alcohol intake: current Discharge Assessment & Plan Assessment and Plan Assessment: Status post left total hip arthroplasty anterior approach Plan of Treatment: Plan to discharge home Standard total hip replacement protocol with weight-bearing as tolerated and anterior hip precautions Aspirin 81 mg b.i.d. for DVT prophylaxis Multimodal pain management Start outpatient physical therapy in 5-10 days. Follow up in clinic in 2 weeks for wound check. Discharge Plan Discharge Plan Patient Disposition: Home Provider Discharge Comment: DC pending PT approval Discharge orders & Medications Discharge Orders: Discharge (Order); Ordered 11/20/23 Ordered By: Yony Gastelum Prescriptions: New aspirin 81 mg Tablet,Delayed Release (Dr/Ec) 81 mg PO BID Qty: 90 0RF Continued rosuvastatin 10 mg tablet 10 mg PO DAILY meloxicam 7.5 mg tablet 7.5 mg PO BID Multi For Her 18 mg iron-600 mcg-40 mcg Capsule 1 tab-cap PO DAILY biotin 2,500 mcg Tablet 2,500 mcg PO DAILY lisinopril 20 mg Tablet 20 mg PO DAILY Follow up/Referrals: Marybeth Garrett ARNP [Primary Care Provider] - Malika Felipe MD [Physician] - 12/04/23 2:00 pm (Follow up at [facility] in [place] Diet/Activity/Treatments Diet: Diet as Tolerated Activity: Weightbearing as tolerated. Anterior hip precautions. Skin/Wound/Dressing Care Report to your healthcare provider any signs of infection, such as:: chills, fever, night sweats, unusual drainage and unusual redness Dressing: May shower. Keep dressing in place until follow up in office. No bathing or otherwise soaking incision. Call the office if dressing becomes saturated inside. Visit Report/Discharge Packet Instructions: DI for Hip Replacement Stand Alone Forms: Patient Portal/API, Surgery Discharge Discharge Data Primary Care Provider: Marybeth Garrett Attending Provider: Malika Felipe
[2023-11-20] MEDS: ASPIRIN EC 81 MG TABLET PO (08:42)
[2023-11-20] MEDS: ACETAMINOPHEN 325 MG TABLET 650 MG PO (08:43)
[2023-11-20] MEDS: DOCUSATE 100 MG CAPSULE PO (08:43)
[2023-11-20] MEDS: lisinopriL 20 MG TABLET PO (08:43)
[2023-11-20] MEDS: MELOXICAM 7.5 MG TABLET PO (08:43)
--- NOTE | 2023-11-20 09:40 | PT.IIE ---
Current Diagnoses Unilateral primary osteoarthritis, left hip (11/19/23) Surgery Performed Operation Date: 11/19/23 13:45 Actual Procedures p Total Hip Arthroplasty/Anterior Approach(Left) - Malika Felipe MD Surgical History (Last Updated 07/29/23 @ 12:49 by Stacy León RN) History of hysterectomy (1979) History of total right hip replacement (03/10/20) Hx of colonoscopy (11/27/22) Medical History (Last Updated 07/29/23 @ 13:13 by Stacy León RN) Acid reflux Anxiety Cervical cancer (1979) Diverticulosis Fistula (~2022) Gout HLD (hyperlipidemia) HTN (hypertension) Osteoarthritis Pre-diabetes Physical Therapy Inpatient Evaluation/Re-Eval M1 PT/OT-IP Prior Functional Status Start: 11/20/23 12:01 Freq: NEEDED Status: Discharge Protocol: Document 11/20/23 11:05 [facility] (Rec: 11/20/23 12:14 [facility] [id number]) Medical Review Prior Functional Status Communication Independent Activities of Daily Living and IADL's Due to pain pt needing to have assist for IADl and LB dressing needs. Social History Household Members spouse Living Arrangements House Number of Floors (Floors) Two Floors Number of Stairs To Enter/Railing? 2 steps with left rail going up. Home Environment Tub/Shower Home Equipment Four Wheel Walker,Straight Cane,Bedside Commode,Raised Toilet Seat w/Armrests,Hand Held Shower,Long Handled Sponge,Long Handled Shoe Horn, [employer],Sock Aid,Grab Bars In Shower Additional Social History Comment Pt has a supprotive to assist with her needs. M1 PT/OT-IP Prior Functional Status Start: 11/20/23 12:51 Freq: NEEDED Status: Active Protocol: Document 11/20/23 09:40 AB (Rec: 11/20/23 13:10 AB [id number]) Medical Review Prior Functional Status Medical History Reviewed Yes Communication able to make needs known Activities of Daily Living and IADL's per OT note: Due to pain pt needing to have assist for IADl and LB dressing needs. Social History Household Members spouse Living Arrangements House Number of Floors (Floors) Two Floors Number of Stairs To Enter/Railing? pt will stay on main level of the house 3 steps L rail ascending Home Environment Tub/Shower Home Equipment Four Wheel Walker,Bedside Commode,Shower Seat with Backrest,Hand Held Shower,Grab Bars In Shower M2 PT-IP Current Condition Start: 11/20/23 12:51 Freq: NEEDED Status: Active Protocol: Document 11/20/23 09:40 AB (Rec: 11/20/23 13:10 AB [id number]) Physical Therapy Current Condition Current Condition Evaluation Date 11/20/23 Treatment Diagnosis s/p L JEANETTE anterior; difficulty in walking Onset Date 11/19/23 M3 PT-IP Subjective Start: 11/20/23 12:51 Freq: NEEDED Status: Active Protocol: Document 11/20/23 09:40 AB (Rec: 11/20/23 13:10 AB [id number]) Subjective Physical Therapy Visit Type Type Initial Evaluation Visit Start Time 09:40 Visit Stop Time 11:10 Number of INSPECTOR HAIRSPRING TRUING Visits 0 Physical Therapy Visit Comments Patient Comments agreeable to do PT Therapy Pain Assessment Pain When Pain Assessed During Mobility Pain Present Pain Present Pain Reported Location Left Hip Intensity 8 Scale Used Numeric (0 - 10) Pain Management Techniques Distraction,Modification of Treatment,Re-positioning, Timing of Activity with Medications M4 PT-IP Mobility and Gait Start: 11/20/23 12:51 Freq: NEEDED Status: Active Protocol: Document 11/20/23 09:40 AB (Rec: 11/20/23 13:10 AB [id number]) PT-Bed Mobility Assessment Supine to Sit Supine to Sit Standby Assistance Sit to Supine Sit to Supine Minimal Assistance PT-Transfer Assessment Sit to and From Stand Sit to and from Stand Contact Guard Assistance,1 Person Assistance,Use of Upper Extremities Equipment Transfer Assistive Device Gait Belt,Front Wheeled Walker ,4 Wheeled Walker Orthotic/Prosthetic Devices or Brace: No Transfers Transfer Destination Bed,Chair Transfer Technique ambulated Transfer Ability Level of Assist Contact Guard Assistance,1 Person Assistance,Use of Upper Extremities Comments Mobility Comments pt supine in bed and agreeable to do PT. obtained PLOF and home setup from pt. post-op folder provided and reviewed contents. pt's spouse arrived. educated pt and spouse regarding L hip anterior precautions. pt easily gets anxious and needs cues for redirections and focus on task at hand. pt completed supine to sit x 2 attempts SBA and max cues for techniques. completed sit to stand from EOB CGA and max cues. pt ambulated to the chair using FWW CGA and cues for steadiness and safety. pt sat on the chair. educated pt on use of 4WW. caregiver training conducted. educated spouse regarding use of safety belt and how to assist pt. spouse was able to put safety belt on the. assisted pt with sit to stand and ambulated to EOB using 4WW CGA. pt completed sit to supine min A for LLE elevation and max cues . educated pt and spouse on techniques. completed supine<> sit x 2 set with spouse instructing and assisting pt. pt completed sit to stand from EOB CGA with spouse assisting and ambulated to the hallway using 4WW CGA ~ 100 ft. stair climbing training: educted pt and spouse on how to do stairs using L rail. pt attempted but only able to take 1 step max A x 2 and max cues with (+) L knee buckling. pt is more focus on using UE to get up the step and forgetting to stabilize LE. educated pt on doing stair using L rail + SPC. pt completed up/down steps using L rail + SPC min A and max cues. pt repeated steps with spouse assisting and able to complete safely using SPC+L rail. assisted pt back to her room. pt and spouse without further concerns/questions. pt ambulated from w/c to chair using 4WW CGA with spouse assisting. positioned pt on the chair. call light and table placed within reach. Gait Assessment Gait Gait Assistance Required: Contact Guard Assist Distance (Feet) 100 Able to Maintain Weight Bearing Status Yes During Gait Assistive Devices Assistive Device Gait Belt,Front Wheeled Walker ,4 Wheeled Walker Orthotic/Prosthetic Devices or Brace: Yes Gait Deviations General Gait Pattern Antalgic,Decreased Feet Clearance Factors Limiting Gait Function Factors Limiting Gait Function Decreased Activity Tolerance, Decreased Strength,Difficulty Following Directions,Limited Range of Motion,Pain,Poor Balance,Poor Safety Awareness Stair Climbing Assessment Evaluation Level of Assist On Stairs Minimal Assistance,Maximal Assistance,1 Person Assistance ,2 Person Assistance Devices Stair Climbing Assistive Devices Straight Cane,Left Railing Technique/Endurance Stair Climbing Direction Ascend and Descend Stair Climbing Technique Step to Step Number of Steps Climbed 3 Query Text: Stair Climbing Set # Repetitions (reps) 2 PT-Balance Assessment Sitting Balance and Reactions Static Sitting Balance Ability Normal Dynamic Sitting Balance Ability Good Standing Balance and Reactions Static Standing Balance Ability Fair Dynamic Standing Balance Ability Fair Device Used FWW M5 PT-IP Objective Assessments Start: 11/20/23 12:51 Freq: NEEDED Status: Active Protocol: Document 11/20/23 09:40 AB (Rec: 11/20/23 13:10 AB [id number]) Orientation Orientation/Cognition Level of Alertness Alert Orientation Name,Place,Situation Safety Awareness Decreased Safety Awareness Memory Description Short Term Impaired Gross Range of Motion Lower Extremity ROM Assessment Within Functional Limits Strength Lower Extremity Strength Assessment Left Impaired Hip 3-/5 Knee 3+/5 Muscle Tone Muscle Tone WNL Yes M6 PT-IP Treatment Start: 11/20/23 12:51 Freq: NEEDED Status: Active Protocol: Document 11/20/23 09:40 AB (Rec: 11/20/23 13:10 AB [id number]) Physical Therapy Treatment Education Education Provided Precautions,Weight Bearing Status,Post-Op Packet,Safety M7 PT-IP Assessment and Plan Start: 11/20/23 12:51 Freq: NEEDED Status: Active Protocol: Document 11/20/23 09:40 AB (Rec: 11/20/23 13:10 AB [id number]) PT Summary Assessment and Plan Potential Rehabilitation Potential Fair Status of Condition at Evaluation Stable Summary Impairments Pain,ROM,Strength,Balance, Coordination,Sensation,Tone, Cognition,Bed Mobility, Transfers,Gait,Activity Tolerance Assessment Summary pt is a 73 y/o F s/p L JEANETTE anterior approach POD 1. pt has L hip anterior precautions and is WBAT. pt requiring CGA to min A with mobility using FWW. pt plans to go home and spouse to assist her. caregiver training conducted and spouse was able to assist pt . pt has outpt PT set up. Goals Bed Mobility Goal Independent Transfer Goal Independent,Four Wheeled Walker Gait Goal Independent,Four Wheel Walker Gait Distance 200 Other Goals up/down 3 steps L rail + SPC mod I Days to Meet Goals 5 Frequency of Treatment Frequency Of Treatment Twice a Day Treatment Plan Physical Therapy Treatment Plan Bed Mobility Training,Transfer Training,Gait Training, Therapeutic Exercise,Balance Retraining,Post Op Education, Discharge Planning,Hot or Cold Pack,Neuromuscular Re-ed, Coordination Retraining,Manual Therapy Precautions Anterior Hip Precautions No Hip Extension,No Hip External Rotation Weight Bearing Status Weight Bearing Status Weight Bear as Tolerated Allowed Weight Bearing Amount (enter % LLE WBAT or #) (%) Recommendations To Nursing Amount of Assist Needed 1 Person Assist Discharge Recommendations PT Discharge Recommendations Home with Assistance, Outpatient PT Transportation Needs at Discharge Private Vehicle
--- NOTE | 2023-11-20 11:23 | OT.IP.EVAL ---
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 Social History Household Members spouse Living Arrangements House Number of Floors (Floors) Two Floors Number of Stairs To Enter/Railing? 2 steps with left rail going up. Home Environment Tub/Shower Home Equipment Four Wheel Walker,Straight Cane,Bedside Commode,Raised Toilet Seat w/Armrests,Hand Held Shower,Long Handled Sponge,Long Handled Shoe Horn, Tank Maker Wood,Sock Aid,Grab Bars In Shower Additional Social History Comment Pt has a supportive to assist with her needs. M2 OT-IP Current Condition Start: 11/20/23 12:01 Freq: Status: Active Protocol: Document 11/20/23 11:05 [facility] (Rec: 11/20/23 12:14 [facility] [id number]) Occupational Therapy Current Condition Current Condition Evaluation Date 11/20/23 Treatment Diagnosis S/P L JEANETTE anterior approach Post Operative Precautions Anterior Hip Precautions No Hip Extension,No Hip External Rotation Weight Bearing Status Weight Bearing Status Weight Bear as Tolerated M3 OT- IP Subjective and Pain Start: 11/20/23 12:01 Freq: Status: Active Protocol: Document 11/20/23 11:05 [facility] (Rec: 11/20/23 12:14 [facility] [id number]) OT- Subjective Occupational Therapy Visit Type Type Initial Evaluation Visit Start Time 11:05 Visit Stop Time 11:23 Occupational Therapy Visit Comments Patient Comments Pt agreed to get dressed. Pt's present for caregiver training. Patient/Caregiver Goals TO go home. OT Pain Assessment Pain When Pain Assessed During Mobility Pain Present Pain Present Pain Reported M4 OT- IP ADL's Start: 11/20/23 12:01 Freq: Status: Active Protocol: Document 11/20/23 11:05 [facility] (Rec: 11/20/23 12:14 [facility] [id number]) OT QHI-Hfwq-Optaaej General Evaluation Self-Feeding Ability Independent OT ADL-Grooming Comments OT Grooming Comments Not performed. OT ADL-Oral Care Comments Oral Care Comments Not performed. OT ADL-Dressing General Eval Lower Body Dressing Ability Moderate Assistance Comments OT Dressing Comments Educated best to dress the LLE first and take out last. Pt's assisted her with her sandals. Pt able to kayley a pick pulling machine tender gown. OT ADL-Toileting Comments OT Toileting Comments Suggested pt wears pads and use of the BSC next to the bed as needed. OT ADL-Bathing Comments OT Bathing Comments Pt states to just sponge off initially. Spoke of getting a tub bench. Emphasized not to externally rotate her LLE for needs. M5 OT- IP IADL's Start: 11/20/23 12:01 Freq: Status: Active Protocol: Document 11/20/23 11:05 [facility] (Rec: 11/20/23 12:14 [facility] [id number]) OT-Instrumental Activities of Daily Living Deficits IADL Deficits Identified Deficits Home Safety Awareness Awareness of Need for Assistance at Home Good Awareness Ability to Problem Solve Emergency Able to Problem Solve Situations Money Management Money Management Caregiver Provides Assistance Meal Preparation Meal Preparation Caregiver Provides Assist Growth Hacker Growth Hacker Caregiver Provides Assist M6 OT- IP Functional Cognition Start: 11/20/23 12:01 Freq: Status: Active Protocol: Document 11/20/23 11:05 [facility] (Rec: 11/20/23 12:14 [facility] [id number]) Cognitive Factors Limiting Selfcare Function Cognitive Ability Level of Alertness Alert Patient Orientation Name,Age,Birthday,Month,Date, Year,Day of Week,Place, Situation Attention Span Ability Capable of Focused Attention, Capable of Sustained Attention Ability to Follow Commands Able to Follow One Step Commands Safety Awareness Decreased Ability to Apply Precautions Cognitive Comments Cognitive Assessment Comments Pt able to follow commands for ADL and mobility needs and needing occasional vc to follow her anterior precautions. M7 OT- IP Mobility and Balance Start: 11/20/23 12:01 Freq: Status: Active Protocol: Document 11/20/23 11:05 [facility] (Rec: 11/20/23 12:14 [facility] [id number]) OT-Transfer Assessment Sit to and From Stand Sit to and from Stand Contact Guard Assistance OT- Balance Assessment Sitting Balance and Reactions Static Sitting Balance Ability Normal Dynamic Sitting Balance Ability Good Standing Balance and Reactions Static Standing Balance Ability Good M8 OT- IP Objective Assessments Start: 11/20/23 12:01 Freq: Status: Active Protocol: Document 11/20/23 11:05 [facility] (Rec: 11/20/23 12:14 [facility] [id number]) OT Gross Range of Motion Upper Extremity Range of Motion ROM Impairments WFL for needs OT Strength Comments Strength Comments WFL for needs M9 OT- IP Assessment and Plan Start: 11/20/23 12:01 Freq: Status: Active Protocol: Document 11/20/23 11:05 [facility] (Rec: 11/20/23 12:14 [facility] [id number]) OT Summary Assessment and Plan Potential Rehabilitation Potential Excellent Analytic Complexity at Evaluation Low Summary OT Impairments Pain,Balance,Functional Mobility,Dressing,Toileting, Bathing,Toilet Transfers, Shower Transfers Progress Towards Goals Progressing Toward Goals Assessment Summary Pt low complexity and main barriers are pain and steps and will be needing assist from her for some ADL and all IADL needs at this time. Able to go over dressing , showering, and toileting needs with the pt. Pt may benefit getting a tub bench for showering needs. Pt to go home with assist and have outpt PT . Goals Dressing Goal Independent,Tank Maker Wood,Sock Aid Toileting Goal Independent Bathing Goal Standby Assistance Toilet Transfer Goal Independent Shower Transfer Goal Standby Assistance Days to Meet Goals 7 Frequency of Treatment Frequency Of Treatment Once a Day Treatment Plan OT Treatment Plan ADL Training,Functional Mobility,Patient/Family Education,Discharge Planning Discharge Recommendations OT Discharge Recommendations Home with 26/11 Assist Available,Outpatient PT Home Equipment Needs Tub bench Transportation Needs at Discharge Private Vehicle
--- NOTE | 2023-11-20 11:49 | CM.DANOTE ---
Brief DCP Assessment Note Pt is a 73yo F here following planned left hip surgery with Dr. Felipe on 11.19.23. Pt is POD1 PCP Marybeth Garrett Payer Medicare and [employer]ARP PIE DOUGH ROLLER reviewed EMR. Per chart, lives in [place] with spouse Graham. Per chart, pt to dc home with spouse today. PIE DOUGH ROLLER attempted to meet with pt in room, already dc'd home P: no identified barriers to safe return home with spouse support. CM team will follow as needed. transport with family in [place]OV ANNEL Freire Discharge Planning/Care Management CM Discharge Assessment Start: 11/20/23 11:48 Freq: Status: Active Protocol: Document 11/20/23 11:48 [facility] (Rec: 11/20/23 11:49 [facility] [id number]) Discharge Planning Assessment Assigned Table Games Floor Supervisor ANNEL Stone DPOA/Assigned Designee Name suma Stevenson Contact Information [phone] Advance Directives? No Advance Directives on File No History Provided By Patient Prior Living Arrangements House Household Members spouse Independent with ADL's Yes Is patient alert and oriented? Yes Barriers to Discharge No Discharge Plan Home Transportation Arrangement family in [place]OV Referrals Initiated None needed Whiteboard Updated in Patient Room with No name and ext. # of Table Games Floor Supervisor Review Status In Process Please Provide Date Initial DC 11/20/23 Assessment Was Performed Next Review Type Continued Stay Review Pre-Anesthesia Assessment Start: 11/12/23 08:54 Freq: Status: Active Protocol: Document 11/12/23 08:54 [facility] (Rec: 11/12/23 08:59 [facility] [id number]) Pre-Anesthesia Assessment Patient Information Reviewed Via Chart Review Primary Care Provider Marybeth Garrett Seen Specialist in Last 12 Months Yes Specialist Seen Emergency,General surgeon, Orthopedist Primary Language Citizen [place] Preferred Language Citizen [place] Commercial Sales Specialist Required No Height 167.64 cm Weight 72.575 kg Body Mass Index (BMI) 25.8 Hearing Ability Normal Visual Impairment No Limitations Visual Assist None Dentition Type Teeth, Natural Present Barriers to Learning None Other Aids No Hx Anesthesia Reactions No Hx Family Anesthesia Reaction No Hx Malignant Hyperthermia No Hx Blood Transfusions Yes: Autologous s/p hysterectomy Hx Blood Transfusion Reaction No: 1980 Anesthesia Review Requested No Store Consultant No alcohol intake current alcohol intake frequency 0-2 drinks per day Smoking Status Former smoker how long ago did patient quit smoking Quit age approx 30 Substance Use Type does not use Pain Present Pain Reported Musculoskeletal Symptoms Difficulty Walking,Joint Pain History of Falling (Recent or History of No ) Patient is completely paralyzed or No completely immobile Ambulatory Aid Crutches/cane/walker Mental Status Oriented to own ability Is patient on oxygen? No Does patient have CHAMBERS/SOB No Hx Sleep Apnea No CPAP/BIPAP use not prescribed Currently Taking a Beta Prashanth No Can You Climb a Flight of Stairs Without Yes SOB Hx Chest Pain No Hx SOB No Hx Syncope or Dizziness No Anti-Coagulant Therapy No Has a Senior Ruby Developer No Cardiac Testing No Hx Pacemaker/ICD No Pacemaker Rep Required? No Cardiac Clearance Received No Diet Type At Home Regular Dysphagia No Urinary Catheter Present No Hx Urinary Self Catheterization No Diabetes No: Pre-diabetes Patient No Lactating No Hx Drug Resistant Organism No Presence of External or Internal Medical No: right hip replacement Devices Received a COVID vaccine? Yes Marital Status Lives With spouse Current Living Arrangements House Number of Floors (Floors) Two Floors Support System Spouse Does the Patient Have Assistance After Yes Surgery Patient Discharge Plan Description Return Home Feels Safe in Current Environment Yes Been Physically Hurt or Threatened By a No Person in Current Environment Do you have thoughts of harming yourself None or others? Are you currently considering suicide? No Do you have a plan to hurt yourself or No Plan others? Do You Have Any Spiritual Beliefs That No May Affect Your HC Choices? Do You Have Any Cultural Practices That No May Affect Your HC Choices? Comment Confucianist Who Can We Speak to About Patient's Care Family, friends Identifying Code for Release of Patient Declines to issue Information Health Care Proxy/Next of Kin Graham () Health Care Proxy Emergency Contact Name Graham () Emergency Contact Advance Directives? No Advance Directives on File No Power of Coronary Clinical Specialist Yes Power of Coronary Clinical Specialist Name Graham () Power of Coronary Clinical Specialist
--- NOTE | 2023-11-20 12:18 | PC.NURSE ---
Patient is A&OX4, VSS, afebrile on RA. She is cleared medically for discharge by Ortho this a.m. pending PT/OT approval. She is cleared for discharge by PT and OT after breakfast. She reports her pain is well controlled with PRN pain medications/scheduled medications and ice to L hip. Aquacel to L hip is C/D/I without surrounding redness. She verbalizes understanding of anterior hip precautions, medications, site care, s/sx of infection as well as follow up appointment on 12/03. Patient is escorted via w/ch to private vehicle with her at 11:45 a.m for discharge home today.
== END 2023-11-20 11:45 | disposition home or self-care (01) ==
LOC: OR 12:07 → AC 12:08
PROVIDERS: PCP Registered Nurse; Referring Provider Orthopaedic Surgery; Visit Provider Orthopaedic Surgery
PROC: (CPT 27130; principal; 2023-11-19 13:45)
DX: M16.12 Unilateral primary osteoarthritis, left hip (principal); M25.752 Osteophyte, left hip
CPT/HCPCS: 27130; 36415; 73502; 73503; 76000; 85014; 85018; 97116; 97162; 97165; 97530; 97535; C1776; C9290; J0171; J0690; J1100; J2405; J2704; J3010